=== PATIENT | male | born 1965 | race Caucasian/White ===

== ENCOUNTER 2017-04-25 05:43 | Observation (INO) | payer SELFPAY ==
--- NOTE | 2017-04-25 05:58 | ED ---
Chest Pain HPI - General Source: patient Mode of arrival: ambulatory Limitations: no limitations - History of Present Illness MD Complaint: chest pain Onset/Timin -: week(s) Onset: during rest Pain Location: right chest Pain Radiation: none Severity: severe Quality: sharp Consistency: constant Improves With: nothing Worsens With: inspiration, other (off) Other Symptoms: cough Treatments Prior to Arrival: none <Deepak Montoya - Last Filed: 04/25/17 06:07> <Carlitos Zamora - Last Filed: 04/25/17 07:33> - General Chief Complaint: Chest Pain Stated Complaint: Chest Pain Time Seen by Provider: 04/25/17 05:58 - History of Present Illness Initial Comments: this patient is a 51-year-old man with history of angina who complains of having approximately one week of right sided chest pain. The patient states that the pain is sharp, constant, now severe. The pain gets worse if he coughs or takes a deep breath. He states that it is a little bit better if he lies on his side with a heating pad. he has had an associated cough with some thick yellow sputum and he states occasional flecks of blood. Patient denies diaphoresis, nausea or vomiting, palpitations, lightheadedness or syncope. ( Deepak Montoya) - Related Data Home Medications Medication Instructions Recorded Confirmed Metoprolol Tartrate [Lopressor] 25 mg PO BID 04/25/17 04/25/17 Allergies Allergy/AdvReac Type Severity Reaction Status Date / Time morphine Allergy Unknown Verified 04/25/17 07:27 Penicillins Allergy Unknown Verified 04/25/17 07:27 Review of Systems ROS Other: All systems not noted in ROS Statement are negative. Constitutional: Denies: fever, chills Respiratory: Reports: as per HPI, cough, hemoptysis. Denies: dyspnea, wheezes Cardiovascular: Reports: as per HPI, chest pain. Denies: palpitations, orthopnea Gastrointestinal: Denies: abdominal pain, vomiting, diarrhea Genitourinary: Denies: dysuria, hematuria Musculoskeletal: Denies: back pain Skin: Denies: rash Neurological: Denies: headache <Deepak Montoya - Last Filed: 04/25/17 06:07> ROS Other: All systems not noted in ROS Statement are negative. <Carlitos Zamora - Last Filed: 04/25/17 07:33> ROS Statement: Those systems with pertinent positive or pertinent negative responses have been documented in the HPI. EKG Findings - EKG Results: EKG: interpreted by PRUDENCIO ADAMS, sinus rhythm (rate is proximal a 75 bpm), normal axis, normal QRS, normal ST/T - OR, Pacemaker, Normal: Normal tracing: normal tracing <JeovanyDeepak schultz Last Filed: 04/25/17 06:07> Past Medical History Past Medical History: Chest Pain / Angina, Hypertension History of Any Multi-Drug Resistant Organisms: None Reported Additional Past Surgical History / Comment(s): tumor removal Past Psychological History: No Psychological Hx Reported Smoking Status: Current every day smoker Past Alcohol Use History: Daily Past Drug Use History: Marijuana <JeovanyantoineDeepak Moran Last Filed: 04/25/17 06:07> General Exam Limitations: no limitations General appearance: alert, in no apparent distress Head exam: Present: atraumatic, normocephalic Eye exam: Present: normal appearance. Absent: scleral icterus, conjunctival injection Neck exam: Present: normal inspection Respiratory exam: Present: wheezes. Absent: respiratory distress, rales, rhonchi, stridor Cardiovascular Exam: Present: regular rate, normal rhythm, normal heart sounds. Absent: systolic murmur, diastolic murmur, rubs, gallop GI/Abdominal exam: Present: soft. Absent: distended, tenderness, guarding, rebound, rigid, mass Extremities exam: Present: normal inspection, normal capillary refill. Absent: pedal edema, calf tenderness Back exam: Present: normal inspection. Absent: CVA tenderness (R), CVA tenderness (L) Neurological exam: Present: alert Skin exam: Present: warm, dry, intact, normal color. Absent: rash <JanDeepak - Last Filed: 04/25/17 06:07> Vital Signs 04/25/17 04/25/17 05:55 06:34 Temperature 97.6 F Pulse Rate 80 69 Respiratory 20 18 Rate Blood Pressure 145/88 130/82 O2 Sat by Pulse 99 99 Oximetry Disposition <JanDeepak Moran Last Filed: 04/25/17 06:07> Time of Disposition: 07:33 <Carlitos Zamora - Last Filed: 04/25/17 07:33> Clinical Impression: Unstable angina pectoris Disposition: ADMITTED IP TO THIS HOSP
[2017-04-25] MEDS ORDERED: NITROGLYCERIN SL TABS 0.4 MG TAB SUBLINGUAL STA (06:22)
[2017-04-25 06:29] LABS: ALT 26 U/L (21-72); AST 36 U/L (17-59); Alkaline Phosphatase 69 U/L (38-126); Anion Gap 11 mmol/L; Blood Urea Nitrogen 5 mg/dL (9-20); Calcium 9.6 mg/dL (8.4-10.2); Carbon Dioxide 26 mmol/L (22-30); Chloride 109 mmol/L (98-107); Glucose 77 mg/dL (74-99); Magnesium 1.8 mg/dL (1.6-2.3); Non-African American GFR(MDRD) >60 (>60 ml/min/1.73 sqM); Potassium 3.9 mmol/L (3.5-5.1); Sodium 146 mmol/L (137-145); Total Bilirubin 0.3 mg/dL (0.2-1.3); Total Protein 7.5 g/dL (6.3-8.2)
[2017-04-25 06:35] VITALS: RESP 18
[2017-04-25 06:36] LABS: Partial Thromboplastin Time 23.7 sec (22.0-30.0); Prothrombin Time 9.8 sec (9.0-12.0)
[2017-04-25 06:45] LABS: Basophils # (A) 0.1 k/uL (0-0.2); Basophils % (A) 1 %; CH 35.6; CHCM 33.3; Eosinophils # (A) 0.2 k/uL (0-0.7); Eosinophils % (A) 2 %; HCT 44.6 % (39.0-53.0); HDW 1.86; Luc # (Auto) 0.32; Luc % (Auto) 3; Lymphocytes # (A) 2.5 k/uL (1.0-4.8); Lymphocytes % (A) 27 %; MCHC 33.6 g/dL (31.0-37.0); MCV 107.2 fL (80.0-100.0); Macrocytosis Moderate; Monocytes # (A) 0.8 k/uL (0-1.0); Monocytes % (A) 8 %; Neutrophils # (A) 5.6 k/uL (1.3-7.7); Neutrophils % (A) 59 %; RBC 4.16 m/uL (4.30-5.90); WBC 9.5 k/uL (3.8-10.6); WBC (Perox) 8.92
[2017-04-25] MEDS ORDERED: NITROGLYCERIN SL TABS 0.4 MG TAB SUBLINGUAL PRN (06:53)
[2017-04-25] MEDS ORDERED: SODIUM CHLORIDE 0.9% 1,000 ML IV SCH (07:00)
--- NOTE | 2017-04-25 07:26 | XR ---
EXAM: XR Chest, 2 Views. CLINICAL HISTORY: Reason: Chest Pain TECHNIQUE: Frontal and lateral views of the chest. COMPARISON: No relevant prior studies available. FINDINGS: Lungs: Lungs are normally inflated. There is no evidence of airspace consolidation. Minimal atelectasis or scarring is seen in both lower lobes. Pleural spaces: Unremarkable. No pneumothorax. Heart: Unremarkable. No cardiomegaly. Mediastinum: Unremarkable. Bones: Unremarkable. No acute fracture. IMPRESSION: No evidence of active cardiopulmonary abnormality.
[2017-04-25 08:22] VITALS: BMI 20.7
[2017-04-25] MEDS ORDERED: NICOTINE 14MG/24HR PATCH TRANSDERM SCH (09:00)
[2017-04-25] MEDS ORDERED: METOPROLOL TARTRATE 25 MG TAB PO SCH ×2 (09:00)
[2017-04-25 10:16] LABS: Cholesterol 182 mg/dL (<200); HDL Cholesterol 68 mg/dL (40-60)
[2017-04-25 10:25] LABS: Creatine Kinase 158 U/L (55-170)
[2017-04-25 10:36] LABS: Creatine Kinase MB 1.5 ng/mL (0.0-2.4); Troponin I <0.012 ng/mL (0.000-0.034)
[2017-04-25] MEDS ORDERED: DOBUTamine DRIP for NUC MED 500 MG in DEXTROSE/WATER 1 250ML.BAG IV ONE (10:58)
[2017-04-25 12:20] VITALS: BP 134/89; PULSE 76; TEMP 98.1
--- NOTE | 2017-04-25 13:14 | ECHOS ---
Referral Reason:chest pain MEASUREMENTS -------- HEIGHT: 175.3 cm WEIGHT: 66.2 kg BP: 131/80 FINDINGS -------- The patient received intravenous dobutamine beginning at 10 mcg/kg/min, increasing to 20 mcg/kg/min and 30 mcg/kg/min in 3 minute stages plus 0 mg atropine. Max Heart Rate: 147 % of Max Predicted Heart Rate: 86% Rest Heart Rate: 65 Rest BP: 131/80 Max BP: 146/68 Mets Achieved: N/A The test was stopped because the target heart rate was achieved. Sinus rhythm. In response to stress, the ECG showed no ST-T wave changes . In response to stress, the ECG showed no ST-T wave changes . There were normal blood pressure and heart rate responses to stress. LV size, wall thickness and systolic function are normal, with an EF of 60%. At recovery dobutamine stress there was appropriate augmentation of systolic function of all segments with decrease in cavity size. CONCLUSIONS -------- 1. The patient received intravenous dobutamine beginning at 10 mcg/kg/min, increasing to 20 mcg/kg/min and 30 mcg/kg/min in 3 minute stages plus 0 mg atropine. 2. No 2D echocardiographic evidence of inducible ischemia to achieved workload. PARTY DEMONSTRATOR: SHEA Pitt
--- NOTE | 2017-04-25 13:25 | P.CRDCN ---
History of Present Illness Consult date: 04/25/17 History of present illness: This 51-year-old male past medical history significant for hypertension, chronic tobacco abuse and regular alcohol intake. He states he smokes 2-3 packs per day and drinks a case of beer per week.. 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 He presents to the hospital with complaints of right-sided reproducible pleuritic chest pain radiates around to his back for the previous week. He can not specify any event that occurred to cause this pain he only states he was sitting down at rest when it occurred and it intensifies with exertion. It does not get better with rest. It also worsens with cough. He went and associated shortness of breath and dizziness. Denies palpitations, nausea or vomiting. The pain does not radiate to his arms or neck but he does feel discomfort in bilateral shoulders. EKG reveals sinus mechanism with no acute ST or T-wave abnormalities. Chest xray no evidence of acute cardiopulmonary process. Cardiac enzymes negative x2, all other labs reviewed. Blood pressure 124/81 with heart rate 64. Current cardiac medications include lopressor 25 mg BID. Review of Systems CONSTITUTIONAL: Denies fever. Denies chills. EYES: Denies blurred vision. Denies vision changes. Denies eye pain. EARS, NOSE, MOUTH & THROAT: Denies headache. Denies sore throat. Denies ear pain. CARDIOVASCULAR: Complains of pleuritic chest pain with shortness of breath. Denies orthopnea. Denies PND. Denies palpitations. RESPIRATORY: Denies cough. GASTROINTESTINAL: Denies abdominal pain. Denies diarrhea. Denies constipation. Denies nausea. Denies vomitng. MUSCULOSKELETAL: Denies myalgias. INTEGUMENTARY: Denies pruitis. Denies rash. NEUROLOGIC: Denies numbness. Denies tingling. Denies weakness. PSYCHIATRIC: Denies anxiety. Denies depression. ENDOCRINE: Denies fatigue. Denies weight change. Denies polydipsia. Denies polyurina. GENITOURINARY: Denies burning, hematuria or urgency with micturation. HEMATOLOGIC: Denies history of anemia. Denies bleeding. Past Medical History Past Medical History: Chest Pain / Angina, Hypertension History of Any Multi-Drug Resistant Organisms: None Reported Additional Past Surgical History / Comment(s): tumor removal Past Psychological History: No Psychological Hx Reported Smoking Status: Current every day smoker Past Alcohol Use History: Daily Past Drug Use History: Marijuana - Past Family History Father Family Medical History: Congestive Heart Failure (CHF) Mother Family Medical History: CVA/TIA Medications and Allergies Home Medications Medication Instructions Recorded Confirmed Type Albuterol Inhaler [Ventolin Hfa 1 - 2 puff INHALATION Q6HR PRN #1 04/25/17 Rx Inhaler] inhaler Doxycycline Monohydrate [Monodox] 100 mg PO Q12HR #10 cap 04/25/17 Rx Metoprolol Tartrate [Lopressor] 25 mg PO BID 04/25/17 04/25/17 History Allergies Allergy/AdvReac Type Severity Reaction Status Date / Time morphine Allergy Unknown Verified 04/25/17 07:27 Penicillins Allergy Unknown Verified 04/25/17 07:27 Physical Exam Vitals: Vital Signs Temp Pulse Resp BP Pulse Ox 04/25/17 07:44 97.0 F L 76 18 114/61 100 04/25/17 07:35 97.0 F L 76 18 114/61 100 04/25/17 06:34 69 18 130/82 99 04/25/17 05:55 97.6 F 80 20 145/88 99 Intake and Output 04/24/17 04/25/17 04/25/17 22:59 06:59 14:59 Other: Weight 63.503 kg GENERAL: This is a 51-year-old male in no apparent distress at the time of my examination. HEENT: Head is atraumatic, normocephalic. Pupils are equal, round. Sclerae anicteric. Conjunctivae are clear. Mucous membranes of the mouth are moist. Neck is supple. There is no jugular venous distention. No carotid bruit is heard. LUNGS: Clear to auscultation no wheezes, rales or rhonchi. No chest wall tenderness is noted on palpation or with deep breathing. HEART: Regular rate and rhythm without murmurs, rubs or gallops. S1 and S2 heard. ABDOMEN: Soft, nontender. Bowel sounds are heard. No organomegaly noted. EXTREMITIES: 2+ peripheral pulses with no evidence of peripheral edema and no calf tenderness noted. NEUROLOGIC: Patient is awake, alert and oriented x3. Results 04/25/17 05:54 04/25/17 05:54 Cardiac Enzymes 04/25/17 04/25/17 Range/Units 05:54 05:54 AST 36 (17-59) U/L Troponin I <0.012 (0.000-0.034) ng/mL Coagulation 04/25/17 Range/Units 05:54 PT 9.8 (9.0-12.0) sec APTT 23.7 (22.0-30.0) sec CBC 04/25/17 Range/Units 05:54 WBC 9.5 (3.8-10.6) k/uL RBC 4.16 L (4.30-5.90) m/uL Hgb 15.0 (13.0-17.5) gm/dL Hct 44.6 (39.0-53.0) % Plt Count 287 (150-450) k/uL Comprehensive Metabolic Panel 04/25/17 Range/Units 05:54 Sodium 146 H (137-145) mmol/L Potassium 3.9 (3.5-5.1) mmol/L Chloride 109 H (98-107) mmol/L Carbon Dioxide 26 (22-30) mmol/L BUN 5 L (9-20) mg/dL Creatinine 0.58 L (0.66-1.25) mg/dL Glucose 77 (74-99) mg/dL Calcium 9.6 (8.4-10.2) mg/dL AST 36 (17-59) U/L ALT 26 (21-72) U/L Alkaline Phosphatase 69 (38-126) U/L Total Protein 7.5 (6.3-8.2) g/dL Albumin 4.5 (3.5-5.0) g/dL Current Medications Generic Name Dose Route Start Last Admin Trade Name Freq PRN Reason Stop Dose Admin Aspirin 325 mg 04/26/17 09:00 Aspirin PO DAILY [facility] Sodium Chloride 1,000 mls @ 100 mls/hr 04/25/17 07:00 Saline 0.9% IV .Q10H [facility] Metoprolol Tartrate 25 mg 04/25/17 09:00 Lopressor PO BID EDEL Nitroglycerin 0.4 mg 04/25/17 06:53 Nitrostat SUBLINGUAL Q5M PRN Chest Pain Intake and Output 04/24/17 04/25/17 04/25/17 22:59 06:59 14:59 Other: Weight 63.503 kg 04/25/17 05:54 04/25/17 05:54 Assessment and Plan Assessment: ASSESSMENT 1. Pleuritic chest pain 2. Essential hypertension 3. Chronic excessive tobacco abuse 4. Regular alcohol intake PLAN Obtain 2-D echocardiogram and Doppler study to assess cardiac structure and function. Proceed with dobutamine stress echocardiogram. Smoking cessation discussed, patient resistant. Lifestyle modification recommended. If his stress test is normal is stable for discharge home. He should follow-up with his primary care physician within the week. Nurse Practitioner note has been reviewed, I agree with a documented findings and plan of care. Patient was seen and examined.
--- NOTE | 2017-04-25 16:33 | P.HPIM ---
History of Present Illness This 51-year-old male past medical history significant for hypertension, chronic tobacco abuse and regular alcohol intake. He states he smokes 2-3 packs per day and drinks a case of beer per week.. 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 He presents to the hospital with complaints of right-sided reproducible pleuritic chest pain radiates around to his back for the previous week. He can not specify any event that occurred to cause this pain he only states he was sitting down at rest when it occurred and it intensifies with exertion. It does not get better with rest. It also worsens with cough. He went and associated shortness of breath and dizziness. Denies palpitations, nausea or vomiting. The pain does not radiate to his arms or neck but he does feel discomfort in bilateral shoulders. Patient's chest pain is secondary to bronchitis and cough patient does have reproducible chest pain in the lower chest area tenderness is secondary to chronic coughing for about a week extensive counseling regarding smoking was provided patient may have COPD which was never diagnosed is definitely wheezing with rhonchus breath sounds patient does have bronchitis will be discharged on doxycycline and albuterol Review of Systems REVIEW OF SYSTEMS: CONSTITUTIONAL: No fever, no malaise, no fatigue. HEENT: No recent visual problems or hearing problems. Denied any sore throat. CARDIOVASCULAR: No orthopnea, PND, no palpitations, no syncope. PULMONARY: Patient does have bloody streaks with the sputum and yellowish sputum production GASTROINTESTINAL: No diarrhea, no nausea, no vomiting, no abdominal pain. Normoactive bowel sounds. NEUROLOGICAL: No headaches, no weakness, no numbness. HEMATOLOGICAL: Denies any bleeding or petechiae. GENITOURINARY: Denies any burning micturition, frequency, or urgency. MUSCULOSKELETAL/RHEUMATOLOGICAL: Denies any joint pain, swelling, or any muscle pain. ENDOCRINE: Denies any polyuria or polydipsia. The rest of the 14-point review of systems is negative. Past Medical History Past Medical History: Chest Pain / Angina, Hypertension History of Any Multi-Drug Resistant Organisms: None Reported Additional Past Surgical History / Comment(s): tumor removal Past Anesthesia/Blood Transfusion Reactions: No Reported Reaction Past Psychological History: No Psychological Hx Reported Smoking Status: Current every day smoker Past Alcohol Use History: Daily Past Drug Use History: Marijuana - Past Family History Father Family Medical History: Congestive Heart Failure (CHF) Mother Family Medical History: CVA/TIA Medications and Allergies Home Medications Medication Instructions Recorded Confirmed Type Albuterol Inhaler [Ventolin Hfa 1 - 2 puff INHALATION Q6HR PRN #1 04/25/17 Rx Inhaler] inhaler Doxycycline Monohydrate [Monodox] 100 mg PO Q12HR #10 cap 04/25/17 Rx Metoprolol Tartrate [Lopressor] 25 mg PO BID 04/25/17 04/25/17 History Allergies Allergy/AdvReac Type Severity Reaction Status Date / Time morphine Allergy Unknown Verified 04/25/17 07:27 Penicillins Allergy Unknown Verified 04/25/17 07:27 Physical Exam Vitals: Vital Signs Temp Pulse Pulse Resp BP BP Pulse Ox 04/25/17 12:00 98.1 F 76 18 134/89 96 04/25/17 08:00 97.6 F 64 18 124/81 98 04/25/17 07:44 97.0 F L 76 18 114/61 100 04/25/17 07:35 97.0 F L 76 18 114/61 100 04/25/17 06:34 69 18 130/82 99 04/25/17 05:55 97.6 F 80 20 145/88 99 Intake and Output 04/25/17 04/25/17 04/25/17 06:59 14:59 22:59 Intake Total 240 Balance 240 Intake: Oral 240 Other: Voiding Method Toilet Weight 63.503 kg 66.3 kg Patient Weight 04/26/17 06:59 Weight 66.3 kg Results CBC & Chem 7: 04/25/17 05:54 04/25/17 05:54 Labs: Abnormal Lab Results - Last 24 Hours (Table) 04/25/17 04/25/17 04/25/17 Range/Units 05:54 05:54 09:45 RBC 4.16 L (4.30-5.90) m/uL MCV 107.2 H (80.0-100.0) fL MCH 36.0 H (25.0-35.0) pg Sodium 146 H (137-145) mmol/L Chloride 109 H (98-107) mmol/L BUN 5 L (9-20) mg/dL Creatinine 0.58 L (0.66-1.25) mg/dL HDL Cholesterol 68 H (40-60) mg/dL Thrombosis Risk Factor Assmnt - Choose All That Apply Any of the Below Risk Factors Present?: Yes Each Factor Represents 1 point: Age 41-60 years Other Risk Factors: No Other congenital or acquired thrombophilia - If yes, enter type in comment: No Thrombosis Risk Factor Assessment Total Risk Factor Score: 1 Thrombosis Risk Factor Assessment Level: Low Risk Assessment and Plan Plan: 1 chest pain: Rule out acute coronary syndromes patient underwent stress test which was negative patient's chest pain is musculoskeletal secondary to coughing and muscle soreness secondary to that. #2 possibility of COPD with mild acute exacerbation patient was discharged on albuterol smoking cessation counseling was provided patient will be given prescription for back second. #3 bacterial tracheobronchitis leading to mild hemoptysis. #4 tobacco abuse: Extensive counseling regarding this was provided
--- NOTE | 2017-04-25 16:33 | P.DS ---
Providers Date of admission: 04/25/17 06:53 Attending physician: Za Torres Consults: 04/25/17 06:53 Consult Physician Routine Consulting Provider: Ivonne Díaz Consult Reason/Comments: chest pain Do you want consulting provider notified?: Yes Primary care physician: Stated None Hospital Course: Please refer to my HPI Plan - Discharge Summary Discharge Rx Participant: Yes New Discharge Prescriptions: New Doxycycline Monohydrate [Monodox] 100 mg PO Q12HR #10 cap Albuterol Inhaler [Ventolin Hfa Inhaler] 1 - 2 puff INHALATION Q6HR PRN #1 inhaler PRN Reason: Shortness Of Breath Or Wheezing No Action Metoprolol Tartrate [Lopressor] 25 mg PO BID Discharge Medication List Albuterol Inhaler [Ventolin Hfa Inhaler] 1 - 2 puff INHALATION Q6HR PRN #1 inhaler 04/25/17 [Rx] Doxycycline Monohydrate [Monodox] 100 mg PO Q12HR #10 cap 04/25/17 [Rx] Metoprolol Tartrate [Lopressor] 25 mg PO BID 04/25/17 [History] Follow up Appointment(s)/Referral(s): Shahbaz Rawls MD [STAFF PHYSICIAN] - 1 Week None,Stated [Primary Care Provider] - 1-2 days Discharge Disposition: HOME SELF-CARE
[2017-04-26] MEDS ORDERED: ASPIRIN 325 MG TAB PO SCH (09:00)
--- NOTE | 2017-05-29 11:11 | ECHOF ---
Referral Reason:CHEST PAIN MEASUREMENTS -------- HEIGHT: 175.3 cm WEIGHT: 63.5 kg BP: IVSd: 1.2 cm (0.6 - 1.1) LVIDd: 4.1 cm (3.9 - 5.3) LVPWd: 1.1 cm (0.6 - 1.1) IVSs: 1.9 cm LVIDs: 2.3 cm LVPWs: 1.8 cm LAESV Index (A-L): 29.95 ml/m Ao Diam: 2.9 cm (2.0 - 3.7) AV Cusp: 2.1 cm (1.5 - 2.6) LA Diam: 2.6 cm (2.7 - 3.8) EPSS: 0.4 cm MV E Noel: 0.83 m/s MV DecT: 247 ms MV A Noel: 0.76 m/s MV E/A Ratio: 1.09 RAP: 5.00 mmHg RVSP: 21.12 mmHg MV EF SLOPE: 82.33 mm/s (70 - 150) MV EXCURSION: 1.67 cm (> 18.000) FINDINGS -------- Sinus rhythm. This was a technically good study. The left ventricular size is normal. There is borderline concentric left ventricular hypertrophy. Overall left ventricular systolic function is normal with, an EF between 55 - 60 %. The right ventricle is normal in size and function. Normal LA size by volume 22+/-6 ml/m2. The right atrium is normal in size. The aortic valve is trileaflet, and appears structurally normal. No aortic stenosis or regurgitation. The mitral valve is normal. Mild mitral regurgitation is present. Mild tricuspid regurgitation present. There is no evidence of pulmonary hypertension. The right v entricular systolic pressure, as measured by Doppler, is 21.12mmHg. There is no pulmonic regurgitation present. The aortic root, ascending aorta and aortic arch are normal. Normal inferior vena cava with normal inspiratory collapse consistent with estimated right atrial pre ssure of 5 mmHg. There is no pericardial effusion. CONCLUSIONS -------- 1. Sinus rhythm. 2. This was a technically good study. 3. There is borderline concentric left ventricular hypertrophy. 4. Overall left ventricular systolic function is normal with, an EF between 55 - 60 %. 5. Normal LA size by volume 22+/-6 ml/m2. 6. The aortic valve is trileaflet, and appears structurally normal. No aortic stenosis or regurgitati on. 7. Mild mitral regurgitation is present. 8. Mild tricuspid regurgitation present. 9. There is no evidence of pulmonary hypertension. 10. There is no pulmonic regurgitation present. 11. The aortic root, ascending aorta and aortic arch are normal. 12. Normal inferior vena cava with normal inspiratory collapse consistent with estimated right atrial pressure of 5 mmHg. 13. There is no pericardial effusion. REGIONAL MEDICAL DIRECTOR: Margaret Lopez RDCS
== END 2017-04-25 14:55 | disposition home or self-care (01) ==
LOC: EC 05:43 → 3OBS 06:53
PROVIDERS: ADMIT Hospitalist; ATTEND Hospitalist
DX: J40 Bronchitis, not specified as acute or chronic (principal); I10 Essential (primary) hypertension; F17.200 Nicotine dependence, unspecified, uncomplicated; R42 Dizziness and giddiness; Z79.899 Other long term (current) drug therapy; Z88.5 Allergy status to narcotic agent; Z88.0 Allergy status to penicillin; Z82.49 Family history of ischemic heart disease and other diseases of the circulatory system
CPT/HCPCS: 99285; 36415; 93005; 93017; 93306; 93350; 85379; 80061; 80053; 82550; 82553; 83735; 84484; 85025; 85610; 85730; 71020; G0378; S4990

== ENCOUNTER 2018-07-10 13:20 | Inpatient (IN) | payer OTHER ==
--- NOTE | 2018-07-10 14:02 | ED ---
General Adult HPI - General Chief complaint: Psychiatric Symptoms Stated complaint: Petition Time Seen by Provider: 07/10/18 13:25 Source: patient, police, RN notes reviewed Mode of arrival: ambulatory Limitations: no limitations - History of Present Illness Initial comments: This is a 52-year-old male who presents emergency Department complaining of wanting to kill himself. Patient states he had cross bow was ready to shoot himself in the neck. Patient states Sunday he was laid off of his job and today his left him. Patient states he been for 2 years. Patient states he drinks daily. Patient states he drank quite a bit this morning once his started packing up her things. Patient states it is one of the things him and his argue about is his heavy drinking. Patient denies taking any pills or illegal drugs today. Patient states he made no attempts at killing himself today but was seriously considering. Patient's blood pressure was elevated and I told him that we would do a little workup on him because of the elevated blood pressure and bring his blood pressure down. Patient absolutely refused to have any blood work done and have any medications given and in fact he did not want any blood drawn at all. Patient states he hopes whatever medical conditions he has killed him. - Related Data Home Medications Medication Instructions Recorded Confirmed Metoprolol Tartrate [Lopressor] 25 mg PO BID 04/25/17 07/10/18 Allergies Allergy/AdvReac Type Severity Reaction Status Date / Time morphine Allergy Unknown Verified 07/10/18 13:56 Penicillins Allergy Unknown Verified 07/10/18 13:56 Review of Systems ROS Statement: Those systems with pertinent positive or pertinent negative responses have been documented in the HPI. ROS Other: All systems not noted in ROS Statement are negative. Past Medical History Past Medical History: Coronary Artery Disease (CAD), Chest Pain / Angina, Hypertension History of Any Multi-Drug Resistant Organisms: None Reported Additional Past Surgical History / Comment(s): tumor removal, CAROTID SURGERY Past Anesthesia/Blood Transfusion Reactions: No Reported Reaction Past Psychological History: No Psychological Hx Reported Smoking Status: Current every day smoker Past Alcohol Use History: Daily, Heavy Past Drug Use History: Marijuana - Past Family History Father Family Medical History: Congestive Heart Failure (CHF) Mother Family Medical History: CVA/TIA General Exam - General Exam Comments Initial Comments: GENERAL: Patient is well-developed and well-nourished. Patient is nontoxic and well- hydrated and is in no acute distress. Patient seems intoxicated and he does admit to being intoxicated. ENT: Neck is soft and supple. No significant lymphadenopathy is noted. Oropharynx is clear. Moist mucous membranes. Neck has full range of motion without eliciting any pain. EYES: The sclera were anicteric and conjunctiva were pink and moist. Extraocular movements were intact and pupils were equal round and reactive to light. Eyelids were unremarkable. PULMONARY: Unlabored respirations. Good breath sounds bilaterally. No audible rales rhonchi or wheezing was noted. CARDIOVASCULAR: There is a regular rate and rhythm without any murmurs gallops or rubs. ABDOMEN: Soft and nontender with normal bowel sounds. No palpable organomegaly was noted. There is no palpable pulsatile mass. SKIN: Skin is clear with no lesions or rashes and otherwise unremarkable. NEUROLOGIC: Patient is alert and oriented x3. Cranial nerves II through XII are grossly intact. Motor and sensory are also intact. Normal speech, volume and content. Symmetrical smile. MUSCULOSKELETAL: Normal extremities with adequate strength and full range of motion. No lower extremity swelling or edema. No calf tenderness. LYMPHATICS: No significant lymphadenopathy is noted PSYCHIATRIC: She states she suicidal and he wants no medical intervention because he rather be Limitations: no limitations Course Vital Signs 07/10/18 07/10/18 07/10/18 13:23 14:15 15:08 Temperature 98 F Pulse Rate 109 H 85 Respiratory 18 16 Rate Blood Pressure 214/111 210/108 201/125 O2 Sat by Pulse 99 97 Oximetry 07/10/18 15:20 Temperature Pulse Rate 75 Respiratory 16 Rate Blood Pressure 151/90 O2 Sat by Pulse 97 Oximetry Medical Decision Making - Medical Decision Making After recheck with medical legal they indicated to us that we could make the patient get medical treatment while he was intoxicated. I went back into the room to reevaluate the patient I told him that I thought medical treatment was indicated for his high blood pressure and he eventually agreed to allow us to do it until he was sober. EKG shows a normal sinus rhythm at 65 bpm VA interval 160 QRS is 88 QT interval 436 QTC is 453 per patient's EKG shows no ST segment elevation or depression. Patient refuses to stay still for a chest x-ray. I spoke with some physicians accepted the admission. - Lab Data Result diagrams: 07/10/18 14:21 07/10/18 14:21 Lab Results 07/10/18 07/10/18 07/10/18 Range/Units 14:21 14:21 14:21 WBC 6.8 (3.8-10.6) k/uL RBC 4.75 (4.30-5.90) m/uL Hgb 17.2 (13.0-17.5) gm/dL Hct 51.6 (39.0-53.0) % MCV 108.5 H (80.0-100.0) fL MCH 36.2 H (25.0-35.0) pg MCHC 33.4 (31.0-37.0) g/dL RDW 13.4 (11.5-15.5) % Plt Count 174 (150-450) k/uL Neutrophils % 66 % Lymphocytes % 24 % Monocytes % 6 % Eosinophils % 1 % Basophils % 1 % Neutrophils # 4.5 (1.3-7.7) k/uL Lymphocytes # 1.6 (1.0-4.8) k/uL Monocytes # 0.4 (0-1.0) k/uL Eosinophils # 0.1 (0-0.7) k/uL Basophils # 0.1 (0-0.2) k/uL Macrocytosis Moderate PT (9.0-12.0) sec INR (<1.2) APTT (22.0-30.0) sec Sodium 139 (137-145) mmol/L Potassium 4.6 (3.5-5.1) mmol/L Chloride 99 (98-107) mmol/L Carbon Dioxide 26 (22-30) mmol/L Anion Gap 14 mmol/L BUN 5 L (9-20) mg/dL Creatinine 0.64 L (0.66-1.25) mg/dL Est GFR (CKD-EPI)AfAm >90 (>60 ml/min/1.73 sqM) Est GFR (CKD-EPI)NonAf >90 (>60 ml/min/1.73 sqM) Glucose 88 (74-99) mg/dL Calcium 9.4 (8.4-10.2) mg/dL Magnesium 1.8 (1.6-2.3) mg/dL Total Bilirubin 0.5 (0.2-1.3) mg/dL AST 56 (17-59) U/L ALT 45 (21-72) U/L Alkaline Phosphatase 91 (38-126) U/L Total Creatine Kinase 66 (55-170) U/L CK-MB (CK-2) 0.5 (0.0-2.4) ng/mL CK-MB (CK-2) Rel Index 0.8 Troponin I <0.012 (0.000-0.034) ng/mL Total Protein 8.1 (6.3-8.2) g/dL Albumin 5.0 (3.5-5.0) g/dL Urine Opiates Screen (NotDetected) Ur Oxycodone Screen (NotDetected) Urine Methadone Screen (NotDetected) Ur Propoxyphene Screen (NotDetected) Ur Barbiturates Screen (NotDetected) U Tricyclic Antidepress (NotDetected) Ur Phencyclidine Scrn (NotDetected) Ur Amphetamines Screen (NotDetected) U Methamphetamines Scrn (NotDetected) U Benzodiazepines Scrn (NotDetected) Urine Cocaine Screen (NotDetected) U Marijuana (THC) Screen (NotDetected) Serum Alcohol 330 H* mg/dL 07/10/18 07/10/18 Range/Units 14:21 15:25 WBC (3.8-10.6) k/uL RBC (4.30-5.90) m/uL Hgb (13.0-17.5) gm/dL Hct (39.0-53.0) % MCV (80.0-100.0) fL MCH (25.0-35.0) pg MCHC (31.0-37.0) g/dL RDW (11.5-15.5) % Plt Count (150-450) k/uL Neutrophils % % Lymphocytes % % Monocytes % % Eosinophils % % Basophils % % Neutrophils # (1.3-7.7) k/uL Lymphocytes # (1.0-4.8) k/uL Monocytes # (0-1.0) k/uL Eosinophils # (0-0.7) k/uL Basophils # (0-0.2) k/uL Macrocytosis PT 9.7 (9.0-12.0) sec INR 0.9 (<1.2) APTT 23.9 (22.0-30.0) sec Sodium (137-145) mmol/L Potassium (3.5-5.1) mmol/L Chloride (98-107) mmol/L Carbon Dioxide (22-30) mmol/L Anion Gap mmol/L BUN (9-20) mg/dL Creatinine (0.66-1.25) mg/dL Est GFR (CKD-EPI)AfAm (>60 ml/min/1.73 sqM) Est GFR (CKD-EPI)NonAf (>60 ml/min/1.73 sqM) Glucose (74-99) mg/dL Calcium (8.4-10.2) mg/dL Magnesium (1.6-2.3) mg/dL Total Bilirubin (0.2-1.3) mg/dL AST (17-59) U/L ALT (21-72) U/L Alkaline Phosphatase (38-126) U/L Total Creatine Kinase (55-170) U/L CK-MB (CK-2) (0.0-2.4) ng/mL CK-MB (CK-2) Rel Index Troponin I (0.000-0.034) ng/mL Total Protein (6.3-8.2) g/dL Albumin (3.5-5.0) g/dL Urine Opiates Screen Not Detected (NotDetected) Ur Oxycodone Screen Not Detected (NotDetected) Urine Methadone Screen Not Detected (NotDetected) Ur Propoxyphene Screen Not Detected (NotDetected) Ur Barbiturates Screen Not Detected (NotDetected) U Tricyclic Antidepress Not Detected (NotDetected) Ur Phencyclidine Scrn Not Detected (NotDetected) Ur Amphetamines Screen Not Detected (NotDetected) U Methamphetamines Scrn Not Detected (NotDetected) U Benzodiazepines Scrn Detected H (NotDetected) Urine Cocaine Screen Not Detected (NotDetected) U Marijuana (THC) Screen Detected H (NotDetected) Serum Alcohol mg/dL Disposition Clinical Impression: Hypertensive urgency, Alcohol intoxication, Suicidal ideation Disposition: ADMITTED IP TO THIS [facility] Referrals: None,Stated [Primary Care Provider] - 1-2 days Time of Disposition: 17:12
[2018-07-10] MEDS ORDERED: NICOTINE 21MG/24HR PATCH TRANSDERM STA (14:09)
[2018-07-10] MEDS ORDERED: LABETALOL SYRINGE 5 MG/ML IVP STA (14:14)
[2018-07-10 14:32] LABS: Basophils # (A) 0.1 k/uL (0-0.2); Basophils % (A) 1 %; Eosinophils # (A) 0.1 k/uL (0-0.7); Eosinophils % (A) 1 %; HCT 51.6 % (39.0-53.0); HGB 17.2 gm/dL (13.0-17.5); Lymphocytes # (A) 1.6 k/uL (1.0-4.8); Lymphocytes % (A) 24 %; MCH 36.2 pg (25.0-35.0); MCHC 33.4 g/dL (31.0-37.0); MCV 108.5 fL (80.0-100.0); Macrocytosis Moderate; Mean Platelet Volume 7.4; Monocytes # (A) 0.4 k/uL (0-1.0); Monocytes % (A) 6 %; Neutrophils # (A) 4.5 k/uL (1.3-7.7); Neutrophils % (A) 66 %; Platelet Count 174 k/uL (150-450); RBC 4.75 m/uL (4.30-5.90); RDW 13.4 % (11.5-15.5); WBC 6.8 k/uL (3.8-10.6)
[2018-07-10 14:43] LABS: INR 0.9 (<1.2); Partial Thromboplastin Time 23.9 sec (22.0-30.0); Prothrombin Time 9.7 sec (9.0-12.0)
[2018-07-10 14:47] LABS: ALT 45 U/L (21-72); AST 56 U/L (17-59); Alkaline Phosphatase 91 U/L (38-126); Anion Gap 14 mmol/L; Blood Urea Nitrogen 5 mg/dL (9-20); Calcium 9.4 mg/dL (8.4-10.2); Carbon Dioxide 26 mmol/L (22-30); Chloride 99 mmol/L (98-107); Glucose 88 mg/dL (74-99); Magnesium 1.8 mg/dL (1.6-2.3); Potassium 4.6 mmol/L (3.5-5.1); Sodium 139 mmol/L (137-145); Total Bilirubin 0.5 mg/dL (0.2-1.3); Total Protein 8.1 g/dL (6.3-8.2)
[2018-07-10 14:55] LABS: Creatine Kinase 66 U/L (55-170)
[2018-07-10 14:59] LABS: Alcohol 330 mg/dL
[2018-07-10 15:08] LABS: Creatine Kinase MB 0.5 ng/mL (0.0-2.4); Troponin I <0.012 ng/mL (0.000-0.034)
[2018-07-10 16:04] LABS: Cocaine Screen,Urine Not Detected (NotDetected); Phencyclidine Screen,Urine Not Detected (NotDetected); Urn Cannabinoid Scrn Detected (NotDetected)
[2018-07-10 16:05] LABS: Amphetamine Screen,Urine Not Detected (NotDetected); Barbiturate Screen,Urine Not Detected (NotDetected); Benzodiazepines Screen,Urine Detected (NotDetected); Methadone Screen, Urine Not Detected (NotDetected); Opiate Screen,Urine Not Detected (NotDetected); Oxycodone Screen, Urine Not Detected (NotDetected); Tricyclic Antidepressant,Urine Not Detected (NotDetected)
[2018-07-10] MEDS ORDERED: SODIUM CHLORIDE 0.9% 1,000 ML IV ONE (17:13)
[2018-07-10] MEDS ORDERED: LORazepam 2 MG/ML INJ IV PRN ×2 (17:17)
[2018-07-10] MEDS ORDERED: THIAMINE 100 MG/ML 2 ML VIAL IM STA (17:17)
--- NOTE | 2018-07-10 17:41 | P.HPIM ---
History of Present Illness H&P Date: 07/10/18 Chief Complaint: suicidal ideation 52-year-old male with PMH of hypertension presents to the ED for suicidal ideation. Patient reports that his had left and this morning, unsure of how to deal with life. He does not admit to any specific plans but does endorse suicidal ideations. Patient denies headaches, lower extremity edema, nausea, vomiting, fever, shortness of breath, palpitations, changes in urination or bowel habits. Patient does report chest pain that has been ongoing for greater than 10 years. Pain is constant and centrally located. Pain is not related to exertion or meals. Patient reports that the pain is aggravated with deep inspirations. Patient reports smoking 3 packs per day for the past 40 years. in the ED, CBC showed a macrocytosis with an MCV of 108.5. Correlation panel was negative. CMP showed a creatinine of 0.64 and BUN of 5. Initial troponin is less than 0.012, with EKG showing normal sinus rhythm.urine drug screen is positive for benzodiazepines and marijuana. Serum alcohol level at 2:15 PM is 330. Patient is admitted for alcohol intoxication and suicidal ideation, psychiatry is onboard. Review of Systems All systems: negative Past Medical History Past Medical History: Coronary Artery Disease (CAD), Chest Pain / Angina, Hypertension History of Any Multi-Drug Resistant Organisms: None Reported Additional Past Surgical History / Comment(s): tumor removal, CAROTID SURGERY Past Anesthesia/Blood Transfusion Reactions: No Reported Reaction Past Psychological History: No Psychological Hx Reported Smoking Status: Current every day smoker Past Alcohol Use History: Daily, Heavy Past Drug Use History: Marijuana - Past Family History Father Family Medical History: Congestive Heart Failure (CHF) Mother Family Medical History: CVA/TIA Medications and Allergies Home Medications Medication Instructions Recorded Confirmed Type Metoprolol Tartrate [Lopressor] 25 mg PO BID 04/25/17 07/10/18 History Allergies Allergy/AdvReac Type Severity Reaction Status Date / Time morphine Allergy Unknown Verified 07/10/18 13:56 Penicillins Allergy Unknown Verified 07/10/18 13:56 Physical Exam Vitals: Vital Signs Temp Pulse Resp BP Pulse Ox 07/10/18 15:20 75 16 151/90 97 07/10/18 15:08 201/125 07/10/18 14:15 85 16 210/108 97 07/10/18 13:23 98 F 109 H 18 214/111 99 Intake and Output 07/10/18 07/10/18 07/10/18 06:59 14:59 22:59 Other: Weight 65.771 kg General: [non toxic], [no distress], [appears at stated age] Derm: [warm], [dry] Head: [atraumatic], [normocephalic], [symmetric], [surgical scar left carotid area] Eyes: [EOMI], [no lid lag], [anicteric sclera] Mouth: [no lip lesion], [mucus membranes moist] Cardiovascular: [S1S2 reg], [no murmur], [positive DP pulse bilateral] Lungs: [CTA bilateral], [no rhonchi, no rales] , [no accessory muscle use] Abdominal: [soft], [ nontender to palpation], [no guarding], [no appreciable organomegaly] Ext: [no gross muscle atrophy], [no edema], [no contractures] Neuro: [ CN II-XI grossly intact], [no focal neuro deficits] Psych: [Alert], [oriented], [appropriate affect] Results CBC & Chem 7: 07/10/18 14:21 07/10/18 14:21 Labs: Abnormal Lab Results - Last 24 Hours (Table) 07/10/18 07/10/18 07/10/18 Range/Units 14:21 14:21 15:25 MCV 108.5 H (80.0-100.0) fL MCH 36.2 H (25.0-35.0) pg BUN 5 L (9-20) mg/dL Creatinine 0.64 L (0.66-1.25) mg/dL U Benzodiazepines Scrn Detected H (NotDetected) U Marijuana (THC) Screen Detected H (NotDetected) Serum Alcohol 330 H* mg/dL Thrombosis Risk Factor Assmnt - Choose All That Apply Any of the Below Risk Factors Present?: Yes Each Factor Represents 1 point: Abnormal pulmonary function (COPD), Age 41-60 years Other Risk Factors: No Other congenital or acquired thrombophilia - If yes, enter type in comment: No Thrombosis Risk Factor Assessment Total Risk Factor Score: 2 Thrombosis Risk Factor Assessment Level: Low Risk Assessment and Plan Assessment: Assessment and Plan 1. Alcohol intoxication 2. Suicidal ideations 3. Chest pain 4. Hypertension 5. Smoker 6. DVT/GI Prophylaxis 1. EtOH level 330 on admission. CIWA protocol. Ativan IV PRN for CIWA > 8. Continue Thiamine 100 mg PO BID. Telemetry monitoring. Keep K > 4 and Mg > 2. Fall and seizure precautions. 2. Suicidal precautions with 1:1 sitter pending Psychiatry evaluation. Patient is intoxicated and incapable of making decision on his own. 3. Appears to be pleuritic in nature, > 10 years ongoing, no concerns for acute coronary syndrome. Troponin < 0.012 with EKG showing normal sinus rhythm. Trend Trop/EKG to r/o ACS. FU CXR 4. BP 151/90. States was on Metoprolol but has not taken it compliantly. Monitor vitals, adjust medications as necessary. 5. 3 PPD smoker. Nicotine patch 21 mg SUBCUT daily. 6. SCD boots only. Patient being treated for alcohol intoxication and suicidal ideation. 1-[address] Psychiatric evaluation pending.
--- NOTE | 2018-07-10 19:17 | XR ---
EXAMINATION TYPE: XR chest 2V DATE OF EXAM: 07/10/2018 COMPARISON: 04/25/2017 HISTORY: Altered mental status. Chest pain TECHNIQUE: Frontal and lateral views of the chest are obtained. FINDINGS: Heart and mediastinum are normal. Lungs are clear. Diaphragm is normal. Bony thorax is int act. IMPRESSION: Normal chest. No change.
[2018-07-10 20:04] VITALS: BMI 22.0
[2018-07-10] MEDS: LORazepam 2 MG/ML INJ IV PRN (20:16)
[2018-07-11] MEDS: LORazepam 2 MG/ML INJ IV PRN ×2 (07:51→11:35)
[2018-07-11 08:25] VITALS: PULSE 86; RESP 18
[2018-07-11] MEDS ORDERED: METOPROLOL TARTRATE 25 MG TAB PO SCH (09:00)
[2018-07-11] MEDS ORDERED: NICOTINE 21MG/24HR PATCH TRANSDERM STA (11:10)
[2018-07-11] MEDS ORDERED: THIAMINE 100 MG TAB PO SCH (12:00)
--- NOTE | 2018-07-11 13:20 | P.DS ---
Providers Date of admission: 07/10/18 17:13 Expected date of discharge: 07/11/18 Attending physician: Vic Maldonado MD Consults: 07/10/18 19:56 Consult Physician Urgent Consulting Provider: Ranjeet Whitfield Consult Reason/Comments: suicidal Do you want consulting provider notified?: Yes Primary care physician: Stated None - Discharge Diagnosis(es) (1) Chest pain Current Visit: Yes Status: Acute (2) Alcohol intoxication Current Visit: Yes Status: Acute (3) Hypertensive urgency Current Visit: Yes Status: Acute (4) Suicidal ideation Current Visit: Yes Status: Acute Hospital Course: 52-year-old male with PMH of hypertension presents to the ED for suicidal ideation. Patient reports that his had left and this morning, unsure of how to deal with life. He does not admit to any specific plans but does endorse suicidal ideations. Patient denies headaches, lower extremity edema, nausea, vomiting, fever, shortness of breath, palpitations, changes in urination or bowel habits. Patient does report chest pain that has been ongoing for greater than 10 years. Pain is constant and centrally located. Pain is not related to exertion or meals. Patient reports that the pain is aggravated with deep inspirations. Patient reports smoking 3 packs per day for the past 40 years. in the ED, CBC showed a macrocytosis with an MCV of 108.5. Correlation panel was negative. CMP showed a creatinine of 0.64 and BUN of 5. Initial troponin is less than 0.012, with EKG showing normal sinus rhythm. Urine drug screen is positive for benzodiazepines and marijuana. Serum alcohol level at 2:15 PM is 330. Patient is admitted for alcohol intoxication and suicidal ideation, psychiatry is onboard. He was cleared for discharge from a Psychiatric standpoint. Patient was seen and examined prior to discharge. No acute events overnight. He has no complaints, requesting to go home. General: [non toxic], [no distress], [appears at stated age] Derm: [warm], [dry] Head: [atraumatic], [normocephalic], [symmetric], [surgical scar left carotid area] Eyes: [EOMI], [no lid lag], [anicteric sclera] Mouth: [no lip lesion], [mucus membranes moist] Cardiovascular: [S1S2 reg], [no murmur], [positive DP pulse bilateral] Lungs: [CTA bilateral], [no rhonchi, no rales] , [no accessory muscle use] Abdominal: [soft], [ nontender to palpation], [no guarding], [no appreciable organomegaly] Ext: [no gross muscle atrophy], [no edema], [no contractures] Psych: [Alert], [oriented], [appropriate affect] Assessment and Plan 1. Alcohol intoxication 2. Suicidal ideations 3. Chest pain 4. Hypertension 5. Smoker 6. DVT/GI Prophylaxis 1. EtOH level 330 on admission. CIWA protocol. Ativan IV PRN for CIWA > 8. Continue Thiamine 100 mg PO BID. Telemetry monitoring. Keep K > 4 and Mg > 2. Fall and seizure precautions. 2. Patient cleared from Psyc. 3. Appears to be pleuritic in nature, > 10 years ongoing, no concerns for acute coronary syndrome. Troponin < 0.012 with EKG showing normal sinus rhythm. CXR clear. 4. BP 162/106. States was on Metoprolol but has not taken it compliantly. Started on Metoprolol and DC with Amlodipine as well. Monitor vitals, adjust medications as necessary. 5. 3 PPD smoker. Nicotine patch 21 mg SUBCUT daily. 6. SCD boots only. Patient being treated for alcohol intoxication and suicidal ideation. Cleared for DC by Psychiatry. Pertinent Studies: CXR Patient Condition at Discharge: Stable Plan - Discharge Summary New Discharge Prescriptions: New amLODIPine [Norvasc] 5 mg PO DAILY #30 tab Continue Metoprolol Tartrate [Lopressor] 25 mg PO BID #60 tab Discharge Medication List Metoprolol Tartrate [Lopressor] 25 mg PO BID #60 tab 07/11/18 [Rx] amLODIPine [Norvasc] 5 mg PO DAILY #30 tab 07/11/18 [Rx] Follow up Appointment(s)/Referral(s): None,Stated [Primary Care Provider] - 1-2 days Activity/Diet/Wound Care/Special Instructions: [facility] - [address] [place] [address]. Discharge Disposition: HOME SELF-CARE
[2018-07-11 13:37] VITALS: BP 167/107; TEMP 98.3
--- NOTE | 2018-07-11 13:41 | P.CN ---
Psychiatric Consult - . Consult date: 07/11/18 Consult:: 07/11/18 09:26 Suicidal Assessment and Plan Assessment: 52-year-old male with PMH of hypertension presents to the ED for suicidal ideation. Patient reports that his had left and this morning, unsure of how to deal with life. He does not admit to any specific plans but does endorse suicidal ideations. Patient denies headaches, lower extremity edema, nausea, vomiting, fever, shortness of breath, palpitations, changes in urination or bowel habits. Patient does report chest pain that has been ongoing for greater than 10 years. Pain is constant and centrally located. Pain is not related to exertion or meals. Patient reports that the pain is aggravated with deep inspirations. Patient reports smoking 3 packs per day for the past 40 years. in the ED, CBC showed a macrocytosis with an MCV of 108.5. Correlation panel was negative. CMP showed a creatinine of 0.64 and BUN of 5. Initial troponin is less than 0.012, with EKG showing normal sinus rhythm.urine drug screen is positive for benzodiazepines and marijuana. Serum alcohol level at 2:15 PM is 330. Patient is admitted for alcohol intoxication and suicidal ideation, psychiatry is onboard. Past Medical History Past Medical History: Coronary Artery Disease (CAD), Chest Pain / Angina, Hypertension History of Any Multi-Drug Resistant Organisms: None Reported Additional Past Surgical History / Comment(s): tumor removal, CAROTID SURGERY Past Anesthesia/Blood Transfusion Reactions: No Reported Reaction Past Psychological History: No Psychological Hx Reported Smoking Status: Current every day smoker Past Alcohol Use History: Daily, Heavy Past Drug Use History: Marijuana - Past Family History Father Family Medical History: Congestive Heart Failure (CHF) Mother Family Medical History: CVA/TIA Medications and Allergies Home Medications Medication Instructions Recorded Confirmed Type Metoprolol Tartrate [Lopressor] 25 mg PO BID 04/25/17 07/10/18 History Allergies Allergy/AdvReac Type Severity Reaction Status Date / Time morphine Allergy Unknown Verified 07/10/18 13:56 Penicillins Allergy Unknown Verified 07/10/18 13:56 Mental Status Examination - The patient presents alert, pleasant, and cooperative. There calmly seated without any agitated behavior. [He] reports that [his] mood is good. Affect is congruent and euthymic. [He] deny having any suicidal or homicidal ideation intent or plan. [He] denies any auditory or visual hallucinations. There is no evidence of any delusional thought content. [His] thought process is linear and goal-directed. [His] speech is fluent and nonpressured. [His] memory and concentration is grossly intact for the purposes of this session. Psychiatric impression: Alcohol-induced adjustment mood disorder and suicidal gesture on 07/10/2018 but is not there now Psychiatric recommendations: He does not need a sitter when medically stable may go home he is not a candidate for inpatient psychiatry at this time. Thank you for the consult Ranjeet Whitfield D.O. PhD Time with Patient: Less than 30
[2018-07-12] MEDS ORDERED: NICOTINE 21MG/24HR PATCH TRANSDERM SCH (09:00)
== END 2018-07-11 15:03 | disposition home or self-care (01) | DRG 897 ==
LOC: EC 13:20 → 3SCARD 17:13
PROVIDERS: ADMIT Family Medicine; ATTEND Family Medicine
DX: F10.14 Alcohol abuse with alcohol-induced mood disorder (principal); R45.851 Suicidal ideations; F10.129 Alcohol abuse with intoxication, unspecified; I16.0 Hypertensive urgency; F17.210 Nicotine dependence, cigarettes, uncomplicated; I25.10 Atherosclerotic heart disease of native coronary artery without angina pectoris; I10 Essential (primary) hypertension; Y90.8 Blood alcohol level of 240 mg/100 ml or more; D75.89 Other specified diseases of blood and blood-forming organs; Z79.899 Other long term (current) drug therapy; Z88.5 Allergy status to narcotic agent; Z88.0 Allergy status to penicillin
CPT/HCPCS: 36415; 71046; 80053; 80306; 80320; 82550; 82553; 83735; 84484; 85025; 85610; 85730; 93005; 96372; 96374; 99285

== ENCOUNTER 2023-02-18 22:22 | Emergency (ER) | payer OTHER ==
[2023-02-18 22:32] VITALS: TEMP 98.6
--- NOTE | 2023-02-18 22:51 | ED ---
SOB HPI - General Chief Complaint: Shortness of Breath Stated Complaint: Difficulty breathing, swelling of the feet Time Seen by Provider: 02/18/23 22:37 Source: patient, RN notes reviewed, old records reviewed Mode of arrival: ambulatory Limitations: no limitations - History of Present Illness Initial Comments: This is a 57-year-old male to the emergency department for evaluation of severe weakness and he believes significant shortness of breath. Lightheaded dizzy and persistent weakness at times. Shortness of breath his been developing getting p rogressively worse. Patient has a good appetite no nausea vomiting or diarrhea. Does have underlying COPD. But no other complaints MD Complaint: shortness of breath, cough -: days(s) Severity: moderate Severity scale (1-10): 4 Consistency: constant Improves With: nothing Known History Of: COPD Context: recent URI, anxiety, recent illness Associated Symptoms: denies other symptoms - Related Data Home Medications Medication Instructions Recorded Confirmed No Known Home Medications 02/19/23 02/19/23 Allergies Allergy/AdvReac Type Severity Reaction Status Date / Time bee venom protein (honey bee) Allergy Swelling Verified 02/19/23 16:07 morphine Allergy Unknown Verified 02/19/23 16:07 Penicillins Allergy Rash/Hives Verified 02/19/23 16:07 Review of Systems ROS Statement: Those systems with pertinent positive or pertinent negative responses have been documented in the HPI. ROS Other: All systems not noted in ROS Statement are negative. Past Medical History Past Medical History: Coronary Artery Disease (CAD), Chest Pain / Angina, Hypertension History of Any Multi-Drug Resistant Organisms: None Reported Additional Past Surgical History / Comment(s): tumor removal, CAROTID SURGERY Past Anesthesia/Blood Transfusion Reactions: No Reported Reaction Past Psychological History: No Psychological Hx Reported Smoking Status: Current every day smoker, Heavy tobacco smoker Past Alcohol Use History: Daily, Heavy Past Drug Use History: Marijuana - Past Family History Father Family Medical History: Congestive Heart Failure (CHF) Mother Family Medical History: CVA/TIA General Exam Limitations: no limitations General appearance: alert, in no apparent distress Head exam: Present: atraumatic, normocephalic, normal inspection Eye exam: Present: normal appearance, PERRL, EOMI. Absent: scleral icterus, conjunctival injection, periorbital swelling ENT exam: Present: normal exam, mucous membranes moist Neck exam: Present: normal inspection. Absent: tenderness, meningismus, lymphadenopathy Respiratory exam: Present: normal lung sounds bilaterally. Absent: respiratory distress, wheezes, rales, rhonchi, stridor Cardiovascular Exam: Present: regular rate, normal rhythm, normal heart sounds. Absent: systolic murmur, diastolic murmur, rubs, gallop, clicks GI/Abdominal exam: Present: soft, normal bowel sounds. Absent: distended, tenderness, guarding, rebound, rigid Extremities exam: Present: normal inspection, full ROM, normal capillary refill. Absent: tenderness, pedal edema, joint swelling, calf tenderness Back exam: Present: normal inspection Neurological exam: Present: alert, oriented X3, CN II-XII intact Psychiatric exam: Present: normal affect, normal mood Skin exam: Present: warm, dry, intact, normal color. Absent: rash Course Vital Signs 02/18/23 02/18/23 02/18/23 22:30 22:50 22:58 Temperature 98.6 F Pulse Rate 104 H 101 H Respiratory 20 18 18 Rate Blood Pressure 124/77 131/84 O2 Sat by Pulse 99 99 Oximetry 02/18/23 02/18/23 02/18/23 23:34 23:44 23:53 Temperature Pulse Rate 84 91 98 Respiratory 16 Rate Blood Pressure 131/84 O2 Sat by Pulse 94 L Oximetry 02/18/23 02/19/23 02/19/23 23:54 00:00 00:30 Temperature Pulse Rate 93 94 103 H Respiratory Rate Blood Pressure 131/84 131/84 121/70 O2 Sat by Pulse 95 Oximetry - Reevaluation(s) Reevaluation #1: 02/18/23 23:27 Medical record is reviewed Reevaluation #2: Patient before reevaluation has decided he is going to leave the hospital Reevaluation #3: Patient is encouraged to stay leave AGAINST MEDICAL ADVICE Reevaluation #4: 02/18/23 23:13 Was pt. sent in by a medical professional or institution (, PA, INSTALLMENT ACCOUNT CHECKER, urgent care, hospital, or assisted...) When possible be specific @ -no Did you speak to anyone other than the patient for history (EMS, parent, family, police, friend...)? What history was obtained from this source @ -no Did you review nursing and triage notes (agree or disagree)? Why? @ -agree Are old charts reviewed (outside hosp., previous admission, EMS record, old EKG, old radiological studies, urgent care reports/EKG's, assisted records)? Report findings @ -yes Differential Diagnosis (chest pain, altered mental status, abdominal pain women, abdominal pain men, vaginal bleeding, weakness, fever, dyspnea, syncope, headache, dizziness, GI bleed, back pain, seizure, CVA, palpatations, mental health, musculoskeletal)? @ -prior EKG interpreted by me (3pts min.). @ -yes X-rays interpreted by me (1pt min.). @ -yes CT interpreted by me (1pt min.). @ -no U/S interpreted by me (1pt. min.). @ -no What testing was considered but not performed or refused? (CT, X-rays, U/S, labs)? Why? @ -none What meds were considered but not given or refused? Why? @ -none Did you discuss the management of the patient with other professionals (professionals i.e. , PA, INSTALLMENT ACCOUNT CHECKER, lab, RT, psych nurse, social media editor, weed controller, teacher, medical information officer, case mgr)? Give summary @ -no Was smoking cessation discussed for >3mins.? @ -no Was critical care preformed (if so, how long)? @ -no Were there social determinants of health that impacted care today? How? (Homelessness, low income, unemployed, alcoholism, drug addiction, transportation, low edu. Level, literacy, decrease access to med. care, [facility], rehab)? @ -none Was there de-escalation of care discussed even if they declined (Discuss DNR or withdrawal of care, Hospice)? DNR status @ -no What co-morbidities impacted this encounter? (DM, HTN, Smoking, COPD, CAD, Cancer, CVA, ARF, Chemo, Hep., AIDS, mental health diagnosis, sleep apnea, morbid obesity)? @ -none Was patient admitted / discharged? Hospital course, mention meds given and route, prescriptions, significant lab abnormalities, going to OR and other p ertinent info. @ - 57 male released AGAINST MEDICAL ADVICE prior to repeat evaluation and treatment patient is left prior to evaluation of Findings, treatment AMA Undiagnosed new problem with uncertain prognosis? @ -no Drug Therapy requiring intensive monitoring for toxicity (Heparin, Nitro, Insul in, Cardizem)? @ -no Were any procedures done? @ -no Diagnosis/symptom? @ -Shortness of breath with chest pain undetermined Acute, or Chronic, or Acute on Chronic? @ -Acute Uncomplicated (without systemic symptoms) or Complicated (systemic symptoms)? @ -Complicated Side effects of treatment? @ -no Exacerbation, Progression, or Severe Exacerbation? @ -exacerbation Poses a threat to life or bodily function? How? (Chest pain, [place], [place], pneumonia, PE, COPD, DKA, ARF, appy, cholecystitis, CVA, Diverticulitis, Homicidal, Suicidal, threat to staff... and all critical care pts) @ -yes findings are undetermined here in the ER Medical Decision Making - Medical Decision Making 57 male who presented today for evaluation of chest pain shortness breath currently hospital AGAINST MEDICAL ADVICE - Lab Data Result diagrams: 02/18/23 23:26 02/18/23 23:26 Lab Results 02/18/23 02/18/23 02/18/23 Range/Units 23:26 23:26 23:26 WBC 8.6 (3.8-10.6) k/uL RBC 3.95 L (4.30-5.90) m/uL Hgb 13.1 (13.0-17.5) gm/dL Hct 40.4 (39.0-53.0) % MCV 102.2 H (80.0-100.0) fL MCH 33.1 (25.0-35.0) pg MCHC 32.3 (31.0-37.0) g/dL RDW 14.2 (11.5-15.5) % Plt Count 244 (150-450) k/uL MPV 8.2 Neutrophils % 59 % Lymphocytes % 29 % Monocytes % 8 % Eosinophils % 2 % Basophils % 1 % Neutrophils # 5.1 (1.3-7.7) k/uL Lymphocytes # 2.5 (1.0-4.8) k/uL Monocytes # 0.7 (0-1.0) k/uL Eosinophils # 0.2 (0-0.7) k/uL Basophils # 0.1 (0-0.2) k/uL Macrocytosis Slight PT 9.8 (9.0-12.0) sec INR 0.9 (<1.2) APTT 23.4 (22.0-30.0) sec D-Dimer 0.80 H (<0.60) mg/L FEU Sodium 144 (137-145) mmol/L Potassium 3.0 L (3.5-5.1) mmol/L Chloride 106 (98-107) mmol/L Carbon Dioxide 27 (22-30) mmol/L Anion Gap 11 mmol/L BUN 16 (9-20) mg/dL Creatinine 0.57 L (0.66-1.25) mg/dL Est GFR (CKD-EPI)AfAm >90 (>60 ml/min/1.73 sqM) Est GFR (CKD-EPI)NonAf >90 (>60 ml/min/1.73 sqM) Glucose 71 L (74-99) mg/dL Plasma Lactic Acid Khanh (0.7-2.0) mmol/L Calcium 9.0 (8.4-10.2) mg/dL Phosphorus 2.8 (2.5-4.5) mg/dL Magnesium 1.7 (1.6-2.3) mg/dL Total Bilirubin 0.3 (0.2-1.3) mg/dL AST 28 (17-59) U/L ALT 15 (4-49) U/L Alkaline Phosphatase 70 (38-126) U/L Troponin I (0.000-0.034) ng/mL NT-Pro-B Natriuret Pep 42 pg/mL Total Protein 6.2 L (6.3-8.2) g/dL Albumin 3.6 (3.5-5.0) g/dL Lipase 311 H (23-300) U/L Serum Alcohol 334 H* mg/dL 02/18/23 02/19/23 Range/Units 23:26 00:17 WBC (3.8-10.6) k/uL RBC (4.30-5.90) m/uL Hgb (13.0-17.5) gm/dL Hct (39.0-53.0) % MCV (80.0-100.0) fL MCH (25.0-35.0) pg MCHC (31.0-37.0) g/dL RDW (11.5-15.5) % Plt Count (150-450) k/uL MPV Neutrophils % % Lymphocytes % % Monocytes % % Eosinophils % % Basophils % % Neutrophils # (1.3-7.7) k/uL Lymphocytes # (1.0-4.8) k/uL Monocytes # (0-1.0) k/uL Eosinophils # (0-0.7) k/uL Basophils # (0-0.2) k/uL Macrocytosis PT (9.0-12.0) sec INR (<1.2) APTT (22.0-30.0) sec D-Dimer (<0.60) mg/L FEU Sodium (137-145) mmol/L Potassium (3.5-5.1) mmol/L Chloride (98-107) mmol/L Carbon Dioxide (22-30) mmol/L Anion Gap mmol/L BUN (9-20) mg/dL Creatinine (0.66-1.25) mg/dL Est GFR (CKD-EPI)AfAm (>60 ml/min/1.73 sqM) Est GFR (CKD-EPI)NonAf (>60 ml/min/1.73 sqM) Glucose (74-99) mg/dL Plasma Lactic Acid Khanh 1.9 (0.7-2.0) mmol/L Calcium (8.4-10.2) mg/dL Phosphorus (2.5-4.5) mg/dL Magnesium (1.6-2.3) mg/dL Total Bilirubin (0.2-1.3) mg/dL AST (17-59) U/L ALT (4-49) U/L Alkaline Phosphatase (38-126) U/L Troponin I <0.012 (0.000-0.034) ng/mL NT-Pro-B Natriuret Pep pg/mL Total Protein (6.3-8.2) g/dL Albumin (3.5-5.0) g/dL Lipase (23-300) U/L Serum Alcohol mg/dL - EKG Data -: EKG Interpreted by Me (EKG is sinus 94 W[place] 162 QRS 92 QTC 424) - Radiology Data Radiology results: report reviewed (Chest x-rays negative for acute disease), image reviewed Disposition Clinical Impression: Chest pain, Acute exacerbation of chronic obstructive pulmonary disease Disposition: LEFT AGAINST MEDICAL ADVICE Condition: Undetermined Is patient prescribed a controlled substance at d/c from ED?: No Referrals: None,Stated [Primary Care Provider] - 1-2 days
[2023-02-18] MEDS ORDERED: SODIUM CHLORIDE 0.9% 1,000 ML IV STA ×2 (23:01)
[2023-02-18] MEDS ORDERED: SODIUM CHLORIDE 0.9% 500 ML 500 ML IV STA (23:01)
[2023-02-18] MEDS ORDERED: IPRATROPIUM-ALBUTEROL 3 ML NEB INHALATION STA (23:01)
[2023-02-18 23:54] VITALS: RESP 16
[2023-02-19 00:20] LABS: Basophils # (A) 0.1 k/uL (0-0.2); Basophils % (A) 1 %; Eosinophils # (A) 0.2 k/uL (0-0.7); Eosinophils % (A) 2 %; HCT 40.4 % (39.0-53.0); HGB 13.1 gm/dL (13.0-17.5); Lymphocytes # (A) 2.5 k/uL (1.0-4.8); Lymphocytes % (A) 29 %; MCH 33.1 pg (25.0-35.0); MCHC 32.3 g/dL (31.0-37.0); MCV 102.2 fL (80.0-100.0); Macrocytosis Slight; Mean Platelet Volume 8.2; Monocytes # (A) 0.7 k/uL (0-1.0); Monocytes % (A) 8 %; Neutrophils # (A) 5.1 k/uL (1.3-7.7); Neutrophils % (A) 59 %; Platelet Count 244 k/uL (150-450); RBC 3.95 m/uL (4.30-5.90); RDW 14.2 % (11.5-15.5); WBC 8.6 k/uL (3.8-10.6)
[2023-02-19 00:26] LABS: ALT 15 U/L (4-49); AST 28 U/L (17-59); African American GFR (CKD) >90 (>60 ml/min/1.73 sqM); Albumin 3.6 g/dL (3.5-5.0); Alkaline Phosphatase 70 U/L (38-126); Anion Gap 11 mmol/L; Blood Urea Nitrogen 16 mg/dL (9-20); Carbon Dioxide 27 mmol/L (22-30); Chloride 106 mmol/L (98-107); Glucose 71 mg/dL (74-99); Lipase 311 U/L (23-300); Magnesium 1.7 mg/dL (1.6-2.3); Non-African American GFR(CKD) >90 (>60 ml/min/1.73 sqM); Phosphorus 2.8 mg/dL (2.5-4.5); Sodium 144 mmol/L (137-145); Total Bilirubin 0.3 mg/dL (0.2-1.3); Total Protein 6.2 g/dL (6.3-8.2)
[2023-02-19 00:33] LABS: INR 0.9 (<1.2); Partial Thromboplastin Time 23.4 sec (22.0-30.0); Prothrombin Time 9.8 sec (9.0-12.0)
[2023-02-19 00:34] LABS: NT-Pro-B-Type Natriuretic Pept 42 pg/mL
[2023-02-19 00:37] LABS: Alcohol 334 mg/dL
--- NOTE | 2023-02-19 00:58 | XR ---
EXAMINATION TYPE: XR chest 2V DATE OF EXAM: 02/19/2023 COMPARISON: 07/10/2018 HISTORY: 57-year-old male difficulty in breathing, lower extremity swelling TECHNIQUE: PA and lateral views FINDINGS: Heart normal size. Aorta and pulmonary vasculature within normal limits. Mild interstitial prominence is unchanged. No amy consolidation or pleural effusion. IMPRESSION: Chronic changes without acute process seen.
[2023-02-19 01:03] VITALS: BP 121/70; PULSE 103
== END 2023-02-19 01:20 | disposition left against medical advice (07) ==
LOC: EC 22:22
DX: J44.1 Chronic obstructive pulmonary disease with (acute) exacerbation (principal); I10 Essential (primary) hypertension; I25.10 Atherosclerotic heart disease of native coronary artery without angina pectoris; F17.200 Nicotine dependence, unspecified, uncomplicated; F12.90 Cannabis use, unspecified, uncomplicated; Z88.0 Allergy status to penicillin; Z88.5 Allergy status to narcotic agent; Z91.030 Bee allergy status
CPT/HCPCS: 36415; 71046; 80053; 80320; 83605; 83690; 83735; 83880; 84100; 84484; 85025; 85379; 85610; 85730; 93005; 94640; 96360; 96361; 99285

== ENCOUNTER 2023-02-19 12:18 | Observation (INO) | payer OTHER ==
[2023-02-19] MEDS ORDERED: ALBUTEROL HFA INHALER INHALATION STA (12:48)
--- NOTE | 2023-02-19 12:51 | ED ---
General Adult HPI - General Chief complaint: Shortness of Breath Stated complaint: FERNANDA, came back Time Seen by Provider: 02/19/23 12:27 Source: patient, RN notes reviewed, old records reviewed Mode of arrival: ambulatory Limitations: no limitations - History of Present Illness Initial comments: Patient is a pleasant 57-year-old male presenting to the emergency department complaining of shortness of breath. Patient states he was here yesterday and has continued symptoms. Patient does have cough without sputum production. No chest pain. No fever. No leg pain or swelling. Patient is a smoker. No history of similar symptoms previously. Onset of symptoms was just a day or 2 ago. Patient states he has been vaccinated for COVID-19 infection - Related Data Previous Rx's Medication Instructions Recorded Metoprolol Tartrate [Lopressor] 25 mg PO BID #60 tab 07/11/18 amLODIPine [Norvasc] 5 mg PO DAILY #30 tab 07/11/18 Allergies Allergy/AdvReac Type Severity Reaction Status Date / Time bee venom protein (honey bee) Allergy Swelling Verified 02/19/23 12:19 morphine Allergy Unknown Verified 02/19/23 12:19 Penicillins Allergy Unknown Verified 02/19/23 12:19 Review of Systems ROS Statement: Those systems with pertinent positive or pertinent negative responses have been documented in the HPI. ROS Other: All systems not noted in ROS Statement are negative. Constitutional: Denies: fever Eyes: Denies: eye pain ENT: Denies: ear pain Respiratory: Reports: as per HPI, cough Cardiovascular: Denies: chest pain Endocrine: Reports: fatigue Gastrointestinal: Denies: abdominal pain Genitourinary: Denies: dysuria Past Medical History Past Medical History: Coronary Artery Disease (CAD), Chest Pain / Angina, Hypertension History of Any Multi-Drug Resistant Organisms: None Reported Additional Past Surgical History / Comment(s): tumor removal, CAROTID SURGERY Past Anesthesia/Blood Transfusion Reactions: No Reported Reaction Past Psychological History: No Psychological Hx Reported Smoking Status: Current every day smoker, Heavy tobacco smoker Past Alcohol Use History: Daily, Heavy Past Drug Use History: Marijuana - Past Family History Father Family Medical History: Congestive Heart Failure (CHF) Mother Family Medical History: CVA/TIA General Exam Limitations: no limitations General appearance: alert, in no apparent distress Head exam: Present: normocephalic Eye exam: Present: normal appearance Neck exam: Present: normal inspection Respiratory exam: Present: rales (Left greater than right base) Cardiovascular Exam: Present: regular rate, normal rhythm GI/Abdominal exam: Present: soft. Absent: tenderness Extremities exam: Present: normal inspection. Absent: pedal edema, calf tenderness Neurological exam: Present: alert Psychiatric exam: Present: normal affect, normal mood Skin exam: Present: normal color Course Vital Signs 02/19/23 02/19/23 02/19/23 12:19 14:30 14:38 Temperature 98 F Pulse Rate 77 70 74 Respiratory 18 Rate Blood Pressure 114/78 O2 Sat by Pulse 97 Oximetry EKG Findings - EKG Results: EKG: interpreted by ERMD, sinus rhythm, normal axis, normal QRS, normal ST/T Medical Decision Making - Medical Decision Making Was pt. sent in by a medical professional or institution (, PA, BLOOMING MILL SUPERVISOR, urgent care, hospital, or shelter...) When possible be specific @ -No Did you speak to anyone other than the patient for history (EMS, parent, family, police, friend...)? What history was obtained from this source @ -No Did you review nursing and triage notes (agree or disagree)? Why? @ -I reviewed and agree with nursing and triage notes Were old charts reviewed (outside hosp., previous admission, EMS record, old EKG, old radiological studies, urgent care reports/EKG's, shelter records)? Report findings @ -Previous labs and alcohol level reviewed as well as the chart Differential Diagnosis (chest pain, altered mental status, abdominal pain women, abdominal pain men, vaginal bleeding, weakness, fever, dyspnea, syncope, headache, dizziness, GI bleed, back pain, seizure, CVA, palpatations, mental health, musculoskeletal)? @ -Differential Dyspnea: Coronary syndrome, arrhythmia, tamponade, asthma, COPD, pulmonary embolism, pneumonia, pneumothorax, pulmonary effusion, anaphylaxis, diabetic ketoacidosis, flailed chest, pulmonary contusion, diaphragmatic rupture, anemia, neuromuscular, this is not meant to be an all-inclusive list. EKG interpreted by me (3pts min.). @ -As above X-rays interpreted by me (1pt min.). @ -None done CT interpreted by me (1pt min.). @ -Reported as no pulmonary embolism U/S interpreted by me (1pt. min.). @ -None done What testing was considered but not performed or refused? (CT, X-rays, U/S, labs)? Why? @ -None What meds were considered but not given or refused? Why? @ -None Did you discuss the management of the patient with other professionals (professionals i.e. , PA, BLOOMING MILL SUPERVISOR, lab, RT, psych nurse, clinical social work aide, insurance customer service specialist, teacher, police officer, case management associate)? Give summary @ -Case was discussed with Dr. Cervantes, who will admit for hospital call. Was smoking cessation discussed for >3mins.? @ -No Was critical care preformed (if so, how long)? @ -No Were there social determinants of health that impacted care today? How? (Homelessness, low income, unemployed, alcoholism, drug addiction, transportation, low edu. Level, literacy, decrease access to med. care, [facility], rehab)? @ -No Was there de-escalation of care discussed even if they declined (Discuss DNR or withdrawal of care, Hospice)? DNR status @ -No What co-morbidities impacted this encounter? (DM, HTN, Smoking, COPD, CAD, Cancer, CVA, ARF, Chemo, Hep., AIDS, mental health diagnosis, sleep apnea, morbid obesity)? @ -None Was patient admitted / discharged? Hospital course, mention meds given and route, prescriptions, significant lab abnormalities, going to OR and other pertinent info. @ -Patient reevaluated and updated. Lung sounds improved however still has decreased air exchange and wheezing. Patient will be admitted. Patient also has alcohol intoxication with reported alcohol level of 387. Admission orders written. Undiagnosed new problem with uncertain prognosis? @ -No Drug Therapy requiring intensive monitoring for toxicity (Heparin, Nitro, Insulin, Cardizem)? @ -No Were any procedures done? @ -No Diagnosis/symptom? @ -COPD, alcohol intoxication Acute, or Chronic, or Acute on Chronic? @ -Acute on chronic, acute Uncomplicated (without systemic symptoms) or Complicated (systemic symptoms)? @ -default Side effects of treatment? @ -No Exacerbation, Progression, or Severe Exacerbation? @ -No Poses a threat to life or bodily function? How? (Chest pain, [place], [place], pneumonia, PE, COPD, DKA, ARF, appy, cholecystitis, CVA, Diverticulitis, Homicidal, Suicidal, threat to staff... and all critical care pts) @ -No - Lab Data Result diagrams: 02/19/23 13:05 02/19/23 13:05 Lab Results 02/19/23 02/19/23 02/19/23 Range/Units 13:05 13:05 13:05 WBC 4.6 (3.8-10.6) k/uL RBC 3.61 L (4.30-5.90) m/uL Hgb 12.1 L (13.0-17.5) gm/dL Hct 37.0 L (39.0-53.0) % MCV 102.6 H (80.0-100.0) fL MCH 33.4 (25.0-35.0) pg MCHC 32.6 (31.0-37.0) g/dL RDW 14.5 (11.5-15.5) % Plt Count 218 (150-450) k/uL MPV 8.4 Neutrophils % 52 % Lymphocytes % 34 % Monocytes % 7 % Eosinophils % 3 % Basophils % 1 % Neutrophils # 2.4 (1.3-7.7) k/uL Lymphocytes # 1.6 (1.0-4.8) k/uL Monocytes # 0.3 (0-1.0) k/uL Eosinophils # 0.1 (0-0.7) k/uL Basophils # 0.0 (0-0.2) k/uL Macrocytosis Slight PT 10.0 (9.0-12.0) sec INR 0.9 (<1.2) APTT 24.3 (22.0-30.0) sec Sodium 144 (137-145) mmol/L Potassium 3.2 L (3.5-5.1) mmol/L Chloride 112 H (98-107) mmol/L Carbon Dioxide 26 (22-30) mmol/L Anion Gap 6 mmol/L BUN 9 (9-20) mg/dL Creatinine 0.46 L (0.66-1.25) mg/dL Est GFR (CKD-EPI)AfAm >90 (>60 ml/min/1.73 sqM) Est GFR (CKD-EPI)NonAf >90 (>60 ml/min/1.73 sqM) Glucose 76 (74-99) mg/dL Plasma Lactic Acid Khanh (0.7-2.0) mmol/L Calcium 7.9 L (8.4-10.2) mg/dL Magnesium 1.7 (1.6-2.3) mg/dL Total Bilirubin 0.3 (0.2-1.3) mg/dL AST 23 (17-59) U/L ALT 14 (4-49) U/L Alkaline Phosphatase 59 (38-126) U/L Troponin I (0.000-0.034) ng/mL NT-Pro-B Natriuret Pep 212 pg/mL Total Protein 5.5 L (6.3-8.2) g/dL Albumin 3.1 L (3.5-5.0) g/dL Serum Alcohol mg/dL Influenza Type A (PCR) (Not Detectd) Influenza Type B (PCR) (Not Detectd) RSV (PCR) (Not Detectd) SARS-CoV-2 (PCR) (Not Detectd) 02/19/23 02/19/23 02/19/23 Range/Units 13:05 13:05 13:05 WBC (3.8-10.6) k/uL RBC (4.30-5.90) m/uL Hgb (13.0-17.5) gm/dL Hct (39.0-53.0) % MCV (80.0-100.0) fL MCH (25.0-35.0) pg MCHC (31.0-37.0) g/dL RDW (11.5-15.5) % Plt Count (150-450) k/uL MPV Neutrophils % % Lymphocytes % % Monocytes % % Eosinophils % % Basophils % % Neutrophils # (1.3-7.7) k/uL Lymphocytes # (1.0-4.8) k/uL Monocytes # (0-1.0) k/uL Eosinophils # (0-0.7) k/uL Basophils # (0-0.2) k/uL Macrocytosis PT (9.0-12.0) sec INR (<1.2) APTT (22.0-30.0) sec Sodium (137-145) mmol/L Potassium (3.5-5.1) mmol/L Chloride (98-107) mmol/L Carbon Dioxide (22-30) mmol/L Anion Gap mmol/L BUN (9-20) mg/dL Creatinine (0.66-1.25) mg/dL Est GFR (CKD-EPI)AfAm (>60 ml/min/1.73 sqM) Est GFR (CKD-EPI)NonAf (>60 ml/min/1.73 sqM) Glucose (74-99) mg/dL Plasma Lactic Acid Khanh 1.9 (0.7-2.0) mmol/L Calcium (8.4-10.2) mg/dL Magnesium (1.6-2.3) mg/dL Total Bilirubin (0.2-1.3) mg/dL AST (17-59) U/L ALT (4-49) U/L Alkaline Phosphatase (38-126) U/L Troponin I <0.012 (0.000-0.034) ng/mL NT-Pro-B Natriuret Pep pg/mL Total Protein (6.3-8.2) g/dL Albumin (3.5-5.0) g/dL Serum Alcohol mg/dL Influenza Type A (PCR) Not Detected (Not Detectd) Influenza Type B (PCR) Not Detected (Not Detectd) RSV (PCR) Not Detected (Not Detectd) SARS-CoV-2 (PCR) Not Detected (Not Detectd) Disposition Clinical Impression: Acute exacerbation of chronic obstructive pulmonary disease, Alcohol intoxicati on Disposition: ADMITTED IP TO THIS HOSP Is patient prescribed a controlled substance at d/c from ED?: No Referrals: None,Stated [Primary Care Provider] - 1-2 days Time of Disposition: 15:16
[2023-02-19 13:24] LABS: Basophils % (A) 1 %; Eosinophils # (A) 0.1 k/uL (0-0.7); Eosinophils % (A) 3 %; HGB 12.1 gm/dL (13.0-17.5); Lymphocytes # (A) 1.6 k/uL (1.0-4.8); Lymphocytes % (A) 34 %; MCH 33.4 pg (25.0-35.0); MCHC 32.6 g/dL (31.0-37.0); MCV 102.6 fL (80.0-100.0); Macrocytosis Slight; Mean Platelet Volume 8.4; Monocytes # (A) 0.3 k/uL (0-1.0); Monocytes % (A) 7 %; Neutrophils # (A) 2.4 k/uL (1.3-7.7); Neutrophils % (A) 52 %; Platelet Count 218 k/uL (150-450); RBC 3.61 m/uL (4.30-5.90); RDW 14.5 % (11.5-15.5); WBC 4.6 k/uL (3.8-10.6)
--- NOTE | 2023-02-19 13:31 | CT ---
EXAMINATION TYPE: CT angio chest DATE OF EXAM: 02/19/2023 COMPARISON: None HISTORY: SOB CT DLP: 212 mGycm CONTRAST: CT chest with contrast and 3D reconstruction with MIP imaging is performed with IV Contrast, patient injected with 100 mL of Isovue 370. Contrast-enhanced CT of the chest was performed through the course of the pulmonary arteries with tenzin g and mediastinal window settings submitted. 3D reconstruction with MIP imaging was also performed. PULMONARY ARTERIES: The pulmonary arteries and their major tributaries are patent. I do not see carol dence for sizable filling defect to suggest pulmonary embolic process. LUNGS: The lungs are clear and free of infiltrate. No evidence for atelectasis. No pulmonary nodule or mass is detected. No pleural effusion. MEDIASTINUM: Thoracic aorta is of normal caliber.The heart is not enlarged. No evidence for mediast inal mass. No mediastinal lymph nodes greater than 1cm. HILAR STRUCTURES: No evidence for mass. No hilar lymph nodes greater than 1 cm. UPPER ABDOMEN: No significant abnormality is seen. IMPRESSION: 1. No evidence for Pulmonary embolism at this time.
[2023-02-19 13:36] LABS: Sodium 144 mmol/L (137-145)
[2023-02-19 13:37] LABS: ALT 14 U/L (4-49); AST 23 U/L (17-59); African American GFR (CKD) >90 (>60 ml/min/1.73 sqM); Albumin 3.1 g/dL (3.5-5.0); Alkaline Phosphatase 59 U/L (38-126); Anion Gap 6 mmol/L; Blood Urea Nitrogen 9 mg/dL (9-20); Calcium 7.9 mg/dL (8.4-10.2); Carbon Dioxide 26 mmol/L (22-30); Chloride 112 mmol/L (98-107); Glucose 76 mg/dL (74-99); Magnesium 1.7 mg/dL (1.6-2.3); Non-African American GFR(CKD) >90 (>60 ml/min/1.73 sqM); Potassium 3.2 mmol/L (3.5-5.1); Total Bilirubin 0.3 mg/dL (0.2-1.3); Total Protein 5.5 g/dL (6.3-8.2)
[2023-02-19 13:42] LABS: INR 0.9 (<1.2); Partial Thromboplastin Time 24.3 sec (22.0-30.0)
[2023-02-19 13:45] LABS: NT-Pro-B-Type Natriuretic Pept 212 pg/mL
[2023-02-19] MEDS ORDERED: IPRATROPIUM-ALBUTEROL 3 ML NEB INHALATION STA (14:06)
[2023-02-19] MEDS ORDERED: NALOXONE 0.4 MG/ML 1 ML VIAL IVP PRN (15:16)
[2023-02-19] MEDS ORDERED: IPRATROPIUM-ALBUTEROL 3 ML NEB INHALATION PRN (15:16)
[2023-02-19] MEDS ORDERED: methylPREDNISolone SOD SUCCI 125 MG/2 ML VIAL IV STA (15:16)
[2023-02-19] MEDS ORDERED: LORazepam 1 MG TAB PO PRN ×2 (15:17)
[2023-02-19] MEDS ORDERED: THIAMINE 100 MG/ML 2 ML VIAL IM STA (15:17)
[2023-02-19] MEDS ORDERED: LORazepam 0.5 MG TAB PO PRN (15:17)
[2023-02-19] MEDS ORDERED: LORazepam 2 MG/ML INJ IV PRN (15:17)
[2023-02-19] MEDS: IPRATROPIUM-ALBUTEROL 3 ML NEB INHALATION SCH ×2 (16:59→20:52)
[2023-02-19] MEDS: methylPREDNISolone SOD SUCCI 125 MG/2 ML VIAL IV SCH (17:24)
[2023-02-19 23:14] LABS: Alcohol 325 mg/dL
[2023-02-20] MEDS: LORazepam 1 MG TAB PO PRN ×2 (00:54→08:58)
[2023-02-20] MEDS: methylPREDNISolone SOD SUCCI 125 MG/2 ML VIAL IV SCH ×3 (00:55→12:24)
[2023-02-20] MEDS: NICOTINE 21MG/24HR PATCH TRANSDERM SCH ×2 (00:55→08:58)
[2023-02-20] MEDS: IPRATROPIUM-ALBUTEROL 3 ML NEB INHALATION SCH ×2 (07:35→11:07)
[2023-02-20 08:28] VITALS: BP 176/99; RESP 16; TEMP 98.3
[2023-02-20] MEDS ORDERED: MULTIVITAMINS, THERA 1 EACH TAB PO SCH (09:00)
[2023-02-20] MEDS ORDERED: THIAMINE 100 MG TAB PO SCH (09:00)
[2023-02-20 11:18] VITALS: PULSE 78
--- NOTE | 2023-02-20 14:23 | P.HPIM ---
History of Present Illness H&P Date: 02/20/23 History of present illness; patient is a 57-year-old gentleman with past medical history significant for alcohol abuse, hypertension presented to the ER because of shortness of breath. Patient was seen yesterday in the ER for similar complaints. Patient has been having worsening shortness of breath for the last few days. Gets short of breath on exertion. Denies any chest pain. Complaining of cough. Complaining of chest tightness. Denies any nausea or vomiting. Denies abdominal pain. Denies any fever or chills at home. Initial lab work done in the ER showed WBC 4.6, hemoglobin 12.1, platelet count 218, sodium 144, potassium 3.0, creatinine 0.46, alcohol level 325 Influenza AMB not detected, RSV not detected, COVID-19 not detected Chest x-ray done in the ER showed chronic changes without acute process CTA chest negative for PE REVIEW OF SYSTEMS: CONSTITUTIONAL: No fever, no malaise, no fatigue. HEENT: No recent visual problems or hearing problems. Denied any sore throat. CARDIOVASCULAR: As mentioned in HPI PULMONARY: As mentioned in HPI GASTROINTESTINAL: No diarrhea, no nausea, no vomiting, no abdominal pain. NEUROLOGICAL: No headaches, no weakness, no numbness. HEMATOLOGICAL: Denies any bleeding or petechiae. GENITOURINARY: Denies any burning micturition, frequency, or urgency. MUSCULOSKELETAL/RHEUMATOLOGICAL: Denies any joint pain, swelling, or any muscle pain. ENDOCRINE: Denies any polyuria or polydipsia. The rest of the 14-point review of systems is negative. PHYSICAL EXAMINATION: GENERAL: The patient is alert and oriented x3, not in any acute distress. Well developed, well nourished. HEENT: Pupils are round and equally reacting to light. EOMI. No scleral icterus. No conjunctival pallor. Normocephalic, atraumatic. No pharyngeal erythema. No thyromegaly. CARDIOVASCULAR: S1 and S2 present. No murmurs, rubs, or gallops. PULMONARY: Chest is clear to auscultation, no wheezing or crackles. ABDOMEN: Soft, nontender, nondistended, normoactive bowel sounds. No palpable organomegaly. MUSCULOSKELETAL: No joint swelling or deformity. EXTREMITIES: No cyanosis, clubbing, or pedal edema. NEUROLOGICAL: Gross neurological examination did not reveal any focal deficits. SKIN: No rashes. Assessment and plan Acute COPD exacerbation Alcohol abuse Hypokalemia Monitor vital signs Monitor CBC Monitor CMP Continue on zoledronic Continue breathing treatments Encouraged and counseled patient regarding alcohol cessation Continue [facility] protocol Social work consulted Labs and medication were reviewed.. Continue same treatment. Continue with symptomatic treatment. Resume home medication. Monitor labs and vitals. DVT and GI prophylaxis. Further recommendations as per clinical course of the patient Dictation was produced using [employer] dictation software. please excuse any grammatical, word or spelling errors. Past Medical History Past Medical History: Coronary Artery Disease (CAD), Chest Pain / Angina, Hypertension History of Any Multi-Drug Resistant Organisms: None Reported Additional Past Surgical History / Comment(s): tumor removal, CAROTID SURGERY Past Anesthesia/Blood Transfusion Reactions: No Reported Reaction Past Psychological History: No Psychological Hx Reported Smoking Status: Current every day smoker, Heavy tobacco smoker Past Alcohol Use History: Daily, Heavy Past Drug Use History: Marijuana - Past Family History Father Family Medical History: Congestive Heart Failure (CHF) Mother Family Medical History: CVA/TIA Medications and Allergies Home Medications Medication Instructions Recorded Confirmed Type No Known Home Medications 02/19/23 02/19/23 History Allergies Allergy/AdvReac Type Severity Reaction Status Date / Time bee venom protein (honey bee) Allergy Swelling Verified 02/19/23 16:07 morphine Allergy Unknown Verified 02/19/23 16:07 Penicillins Allergy Rash/Hives Verified 02/19/23 16:07 Physical Exam Vitals: Vital Signs Temp Pulse Pulse Resp BP BP Pulse Ox 02/20/23 08:27 98.3 F 91 16 176/99 99 02/20/23 07:44 78 02/20/23 07:35 75 98 02/20/23 05:00 74 18 140/79 96 02/20/23 03:00 75 18 147/91 99 02/20/23 00:00 89 20 173/113 99 02/19/23 22:17 87 18 165/92 98 02/19/23 21:04 74 02/19/23 20:54 73 02/19/23 19:41 84 16 126/79 97 02/19/23 17:10 64 02/19/23 17:00 64 02/19/23 16:18 65 16 112/79 98 02/19/23 14:38 74 02/19/23 14:30 70 02/19/23 12:19 98 F 77 18 114/78 97 FiO2 02/20/23 08:27 02/20/23 07:44 02/20/23 07:35 21 02/20/23 05:00 02/20/23 03:00 02/20/23 00:00 02/19/23 22:17 02/19/23 21:04 02/19/23 20:54 02/19/23 19:41 02/19/23 17:10 02/19/23 17:00 02/19/23 16:18 02/19/23 14:38 02/19/23 14:30 02/19/23 12:19 Intake and Output 02/19/23 02/20/23 02/20/23 22:59 06:59 14:59 Intake Total 118 Balance 118 Intake: Oral 118 Results CBC & Chem 7: 02/19/23 13:05 02/19/23 13:05 Labs: Abnormal Lab Results - Last 24 Hours (Table) 02/19/23 02/19/23 Range/Units 13:05 13:05 RBC 3.61 L (4.30-5.90) m/uL Hgb 12.1 L (13.0-17.5) gm/dL Hct 37.0 L (39.0-53.0) % MCV 102.6 H (80.0-100.0) fL Potassium 3.2 L (3.5-5.1) mmol/L Chloride 112 H (98-107) mmol/L Creatinine 0.46 L (0.66-1.25) mg/dL Calcium 7.9 L (8.4-10.2) mg/dL Total Protein 5.5 L (6.3-8.2) g/dL Albumin 3.1 L (3.5-5.0) g/dL Serum Alcohol 325 H* mg/dL
--- NOTE | 2023-02-27 14:51 | P.DS ---
Providers Date of admission: 02/19/23 15:22 Attending physician: Christiano Cervantes MD Primary care physician: Stated None Hospital Course: Discharge diagnoses; Acute COPD exacerbation Alcohol abuse Hypokalemia Hospital course; patient is a 57-year-old gentleman with past medical history significant for alcohol abuse, hypertension presented to the ER because of shortness of breath. Patient was seen yesterday in the ER for similar complaints. Patient has been having worsening shortness of breath for the last few days. Gets short of breath on exertion. Denies any chest pain. Complaining of cough. Complaining of chest tightness. Denies any nausea or vomiting. Denies abdominal pain. Denies any fever or chills at home. Initial lab work done in the ER showed WBC 4.6, hemoglobin 12.1, platelet count 218, sodium 144, potassium 3.0, creatinine 0.46, alcohol level 325 Influenza AMB not detected, RSV not detected, COVID-19 not detected Chest x-ray done in the ER showed chronic changes without acute process CTA chest negative for PE Patient was admitted to medicine for COPD exacerbation. While in the hospital, patient stated that he does not want to stay in the hospital, patient was counseled regarding staying in the hospital and getting treated. Patient was not willing, patient left AGAINST MEDICAL ADVICE Dictation was produced using [employer] dictation software. please excuse any grammatical, word or spelling errors. Plan - Discharge Summary Discharge Rx Participant: No New Discharge Prescriptions: No Action No Known Home Medications Discharge Medication List No Known Home Medications 02/19/23 [History] Follow up Appointment(s)/Referral(s): None,Stated [Primary Care Provider] - 1-2 days Discharge Disposition: LEFT AGAINST MEDICAL ADVICE
== END 2023-02-20 14:45 | disposition left against medical advice (07) ==
LOC: EC 12:18 → 6NMEDSUR 15:22
PROVIDERS: ADMIT Internal Medicine; ATTEND Internal Medicine
DX: J44.1 Chronic obstructive pulmonary disease with (acute) exacerbation (principal); I10 Essential (primary) hypertension; E87.6 Hypokalemia; F10.229 Alcohol dependence with intoxication, unspecified; F17.200 Nicotine dependence, unspecified, uncomplicated; I25.10 Atherosclerotic heart disease of native coronary artery without angina pectoris
CPT/HCPCS: 96376; 96372; 96374; 96375; 99285; 36415; 94640 ×4; 94760; 93005; 83880; 80053; 83605; 83735; 84484; 85025; 85610; 85730; 80320; 87636; 71275; G0378 ×2; S4990; J2930 ×2; J3411; Q9967

== ENCOUNTER 2023-04-02 00:35 | Emergency (ER) | payer OTHER ==
[2023-04-02 01:00] VITALS: BP 138/76; PULSE 89; RESP 18; TEMP 98.7
[2023-04-02] MEDS ORDERED: ALBUTEROL HFA INHALER INHALATION STA (01:38)
[2023-04-02] MEDS ORDERED: DEXAMETHASONE SOD PHOSPHATE 10 MG/ML 1 ML VIAL IM STA (02:10)
--- NOTE | 2023-04-02 02:12 | ED ---
URI HPI - General Chief Complaint: Upper Respiratory Infection Stated Complaint: SOB Time Seen by Provider: 04/02/23 00:57 Source: patient Mode of arrival: ambulatory Limitations: no limitations - History of Present Illness Initial Comments: 57-year-old male presenting with chief complaint of cough and congestion ongoing for the last 2 days. Patient states that he feels short of breath. He is a pack and a half per day smoker. Nonproductive cough. No fevers or chills. No chest pain. No nausea, vomiting, abdominal pain. No palpitations. No hemoptysis. - Related Data Previous Rx's Medication Instructions Recorded Albuterol Sulfate [Albuterol 2 puff PO Q6H PRN #8.5 gm 04/02/23 Sulfate Hfa] methylPREDNISolone Dose Pack 4 mg PO DIRECTED #1 packet 04/02/23 [Medrol Dose Pack] Allergies Allergy/AdvReac Type Severity Reaction Status Date / Time bee venom protein (honey bee) Allergy Swelling Verified 04/02/23 00:55 morphine Allergy Unknown Verified 04/02/23 00:55 Penicillins Allergy Rash/Hives Verified 04/02/23 00:55 Review of Systems ROS Statement: Those systems with pertinent positive or pertinent negative responses have been documented in the HPI. ROS Other: All systems not noted in ROS Statement are negative. Past Medical History Past Medical History: Coronary Artery Disease (CAD), Chest Pain / Angina, Hy pertension History of Any Multi-Drug Resistant Organisms: None Reported Additional Past Surgical History / Comment(s): tumor removal, CAROTID SURGERY Past Anesthesia/Blood Transfusion Reactions: No Reported Reaction Past Psychological History: No Psychological Hx Reported Smoking Status: Current every day smoker, Heavy tobacco smoker Past Alcohol Use History: Daily, Heavy Past Drug Use History: Marijuana - Past Family History Father Family Medical History: Congestive Heart Failure (CHF) Mother Family Medical History: CVA/TIA General Exam Limitations: no limitations General appearance: alert, in no apparent distress Head exam: Present: atraumatic, normocephalic, normal inspection Eye exam: Present: normal appearance, EOMI Neck exam: Present: normal inspection, full ROM Respiratory exam: Present: normal lung sounds bilaterally. Absent: respiratory distress, wheezes, rales, rhonchi, stridor, accessory muscle use Cardiovascular Exam: Present: regular rate, normal rhythm, normal heart sounds. Absent: systolic murmur, diastolic murmur, rubs, gallop, clicks Neurological exam: Present: alert, oriented X3 Psychiatric exam: Present: normal affect, normal mood Skin exam: Present: warm, dry, intact, normal color. Absent: rash Course Vital Signs 04/02/23 00:54 Temperature 98.7 F Pulse Rate 89 Respiratory 18 Rate Blood Pressure 138/76 O2 Sat by Pulse 96 Oximetry Medical Decision Making - Medical Decision Making Was pt. sent in by a medical professional or institution (MARIN Zavala, FINISH PRODUCTION MANAGER, urgent care, hospital, or senior living...) When possible be specific @ -No Did you speak to anyone other than the patient for history (EMS, parent, family, police, friend...)? What history was obtained from this source @ -No Did you review nursing and triage notes (agree or disagree)? Why? @ -I reviewed and agree with nursing and triage notes Were old charts reviewed (outside hosp., previous admission, EMS record, old EKG, old radiological studies, urgent care reports/EKG's, senior living records)? Report findings @ -No old charts were reviewed Differential Diagnosis (chest pain, altered mental status, abdominal pain women, abdominal pain men, vaginal bleeding, weakness, fever, dyspnea, syncope, headache, dizziness, GI bleed, back pain, seizure, CVA, palpatations, mental health, musculoskeletal)? @ -MDM Differential: Covid, influenza, RSV, pneumonia, bronchitis, this is not an all-inclusive list EKG interpreted by me (3pts min.). @ -As above X-rays interpreted by me (1pt min.). @ -Chest x-ray shows no acute process CT interpreted by me (1pt min.). @ -None done U/S interpreted by me (1pt. min.). @ -None done What testing was considered but not performed or refused? (CT, X-rays, U/S, labs)? Why? @ -None What meds were considered but not given or refused? Why? @ -None Did you discuss the management of the patient with other professionals (professionals i.e. MARIN Zavala, FINISH PRODUCTION MANAGER, lab, RT, psych nurse, social media coordinator, machine stuffer automatic, teacher, product safety officer, case assembler)? Give summary @ -No Was smoking cessation discussed for >3mins.? @ -yes Was critical care preformed (if so, how long)? @ -No Were there social determinants of health that impacted care today? How? (Homelessness, low income, unemployed, alcoholism, drug addiction, transportation, low edu. Level, literacy, decrease access to med. care, [facility], rehab)? @ -No Was there de-escalation of care discussed even if they declined (Discuss DNR or withdrawal of care, Hospice)? DNR status @ -No What co-morbidities impacted this encounter? (DM, HTN, Smoking, COPD, CAD, Cancer, CVA, ARF, Chemo, Hep., AIDS, mental health diagnosis, sleep apnea, morbid obesity)? @ -None Was patient admitted / discharged? Hospital course, mention meds given and route, prescriptions, significant lab abnormalities, going to OR and other pertinent info. @ -57-year-old male presenting with chief complaint of cough and congestion. Patient is a pack and a half per day smoker. Heart and lungs are clear to auscultation bilateral signs are WNL. Patient is negative for influenza, RSV, and Covid. Chest x-rays negative for acute process. Patient is given albuterol inhaler and Medrol Dosepak educated on supportive management at smoking cessation. Follow-up with PCP. Report back to ER with any new or worsening symptoms. Discussed return parameters and answered all questions. Patient conveyed verbal understanding and agreed to the plan. I discussed this case in detail with my attending Dr. Patel Undiagnosed new problem with uncertain prognosis? @ -No Drug Therapy requiring intensive monitoring for toxicity (Heparin, Nitro, Insulin, Cardizem)? @ -No Were any procedures done? @ -No Diagnosis/symptom? @ -URI Acute, or Chronic, or Acute on Chronic? @ -acute Uncomplicated (without systemic symptoms) or Complicated (systemic symptoms)? @ -Uncomplicated Side effects of treatment? @ -No Exacerbation, Progression, or Severe Exacerbation? @ -No Poses a threat to life or bodily function? How? (Chest pain, [place], [place], pneumonia, PE, COPD, DKA, ARF, appy, cholecystitis, CVA, Diverticulitis, Homicidal, Suicidal, threat to staff... and all critical care pts) @ -No - Lab Data Lab Results 04/02/23 Range/Units 00:57 Influenza Type A (PCR) Not Detected (Not Detectd) Influenza Type B (PCR) Not Detected (Not Detectd) RSV (PCR) Not Detected (Not Detectd) SARS-CoV-2 (PCR) Not Detected (Not Detectd) Disposition Clinical Impression: Acute upper respiratory infection Disposition: HOME SELF-CARE Condition: Good Instructions (If sedation given, give patient instructions): Upper Respiratory Infection (ED) Additional Instructions: PCP. Report back to ER with any new or worsening symptoms. Prescriptions: Albuterol Sulfate [Albuterol Sulfate Hfa] 2 puff PO Q6H PRN #8.5 gm PRN Reason: Shortness Of Breath methylPREDNISolone Dose Pack [Medrol Dose Pack] 4 mg PO DIRECTED #1 packet Is patient prescribed a controlled substance at d/c from ED?: No Referrals: Odessa Julio MD [Primary Care Provider] - 1-2 days Time of Disposition: 02:43
--- NOTE | 2023-04-02 07:16 | XR ---
EXAMINATION TYPE: XR chest 2V DATE OF EXAM: 04/02/2023 1:20 AM CLINICAL INDICATION:Male, 57 years old with history of cough; COMPARISON: Chest radiographs from 02/11/2023 TECHNIQUE: XR chest 2V Frontal and lateral views of the chest. FINDINGS: Lungs/Pleura: There is no evidence of pleural effusion, focal consolidation, or pneumothorax. Pulmonary vascularity: Unremarkable. Heart/mediastinum: Cardiomediastinal silhouette is unremarkable. Musculoskeletal: No acute osseous pathology. IMPRESSION: No acute cardiopulmonary disease/process. No significant change from prior.
== END 2023-04-02 02:59 | disposition home or self-care (01) ==
LOC: EC 00:35
DX: J06.9 Acute upper respiratory infection, unspecified (principal); I25.10 Atherosclerotic heart disease of native coronary artery without angina pectoris; I10 Essential (primary) hypertension; F17.200 Nicotine dependence, unspecified, uncomplicated; F12.90 Cannabis use, unspecified, uncomplicated; Z88.0 Allergy status to penicillin; Z91.030 Bee allergy status; Z88.5 Allergy status to narcotic agent; Z20.822 Contact with and (suspected) exposure to COVID-19
CPT/HCPCS: 94640; 87636; 71046; 99285; 96372; J1100

== ENCOUNTER 2023-04-16 17:53 | Emergency (ER) | payer OTHER ==
[2023-04-16 18:09] VITALS: RESP 18
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
[2023-04-16 19:39] VITALS: BP 121/78; PULSE 81; TEMP 98.1
== END 2023-04-16 19:23 | disposition home or self-care (01) ==
LOC: EC 17:53
DX: S20.212A Contusion of left front wall of thorax, initial encounter (principal); I10 Essential (primary) hypertension; I25.10 Atherosclerotic heart disease of native coronary artery without angina pectoris; F12.90 Cannabis use, unspecified, uncomplicated; F17.200 Nicotine dependence, unspecified, uncomplicated; Z91.030 Bee allergy status; Z88.0 Allergy status to penicillin; Y09 Assault by unspecified means
CPT/HCPCS: 99284

== ENCOUNTER 2023-05-29 02:46 | Emergency (ER) | payer OTHER ==
[2023-05-29 02:53] VITALS: BP 142/92; PULSE 100; RESP 20; TEMP 98.9
[2023-05-29 03:11] LABS: Basophils # (A) 0.1 k/uL (0-0.2); Basophils % (A) 1 %; Eosinophils # (A) 0.2 k/uL (0-0.7); Eosinophils % (A) 2 %; HCT 43.7 % (39.0-53.0); HGB 14.7 gm/dL (13.0-17.5); Lymphocytes # (A) 2.4 k/uL (1.0-4.8); Lymphocytes % (A) 25 %; MCH 36.2 pg (25.0-35.0); MCHC 33.6 g/dL (31.0-37.0); MCV 107.8 fL (80.0-100.0); Macrocytosis Moderate; Mean Platelet Volume 7.9; Monocytes # (A) 0.9 k/uL (0-1.0); Monocytes % (A) 9 %; Neutrophils # (A) 5.8 k/uL (1.3-7.7); Neutrophils % (A) 61 %; Platelet Count 216 k/uL (150-450); RBC 4.05 m/uL (4.30-5.90); RDW 13.8 % (11.5-15.5); WBC 9.5 k/uL (3.8-10.6)
[2023-05-29 03:24] LABS: Phosphorus 2.8 mg/dL (2.5-4.5)
[2023-05-29 03:37] LABS: ALT 31 U/L (4-49); AST 68 U/L (17-59); African American GFR (CKD) >90 (>60 ml/min/1.73 sqM); Albumin 3.9 g/dL (3.5-5.0); Alkaline Phosphatase 96 U/L (38-126); Anion Gap 13 mmol/L; Blood Urea Nitrogen 12 mg/dL (9-20); Calcium 8.8 mg/dL (8.4-10.2); Carbon Dioxide 26 mmol/L (22-30); Chloride 103 mmol/L (98-107); Glucose 105 mg/dL (74-99); Magnesium 1.6 mg/dL (1.6-2.3); Non-African American GFR(CKD) >90 (>60 ml/min/1.73 sqM); Potassium 3.4 mmol/L (3.5-5.1); Sodium 142 mmol/L (137-145); Total Bilirubin 0.4 mg/dL (0.2-1.3); Total Protein 6.7 g/dL (6.3-8.2)
[2023-05-29 03:51] LABS: INR 0.9 (<1.2); Partial Thromboplastin Time 24.5 sec (22.0-30.0); Prothrombin Time 10.3 sec (10.0-12.5)
--- NOTE | 2023-05-29 05:43 | XR ---
EXAM: XR Chest, 2 Views CLINICAL HISTORY: ITS.REASON XR Reason: Chest Pain TECHNIQUE: Frontal and lateral views of the chest. COMPARISON: XR Chest dated 04/16/23 FINDINGS: Lungs: Unremarkable. No consolidation. Pleural space: Unremarkable. No pneumothorax. Heart: Unremarkable. No cardiomegaly. Mediastinum: Unremarkable. Normal mediastinal contour. Bones/joints: Unremarkable. No acute fracture. IMPRESSION: No evidence of acute cardiopulmonary disease.
== END 2023-05-29 04:10 | disposition left against medical advice (07) ==
LOC: EC 02:46
DX: Z53.21 Procedure and treatment not carried out due to patient leaving prior to being seen by health care provider (principal); R06.02 Shortness of breath
CPT/HCPCS: 36415; 71046; 80053; 80320; 83690; 83735; 84100; 84484; 85025; 85610; 85730; 93005; 99499

== ENCOUNTER 2024-01-09 15:54 | Emergency (ER) | payer SELFPAY ==
[2024-01-09 16:10] VITALS: TEMP 97.5
[2024-01-09 17:04] VITALS: BP 130/86; PULSE 86; RESP 20
--- NOTE | 2024-01-09 17:05 | ED ---
Altered Mental Status HPI - General Chief Complaint: Altered Mental Status Stated Complaint: ETOH Time Seen by Provider: 01/09/24 15:55 Source: patient, EMS, RN notes reviewed, old records reviewed Mode of arrival: EMS Limitations: altered mental status - History of Present Illness Initial Comments: QN 58 male to the ED co altered mental status and intoxication - Related Data Previous Rx's Medication Instructions Recorded Albuterol Sulfate [Albuterol 2 puff PO Q6H PRN #8.5 gm 04/02/23 Sulfate Hfa] methylPREDNISolone Dose Pack 4 mg PO DIRECTED #1 packet 04/02/23 [Medrol Dose Pack] Allergies Allergy/AdvReac Type Severity Reaction Status Date / Time bee venom protein (honey bee) Allergy Swelling Verified 04/16/23 18:03 morphine Allergy Unknown Verified 04/16/23 18:03 Penicillins Allergy Rash/Hives Verified 04/16/23 18:03 Review of Systems ROS Statement: Those systems with pertinent positive or pertinent negative responses have been documented in the HPI. ROS Other: All systems not noted in ROS Statement are negative. Past Medical History Past Medical History: Coronary Artery Disease (CAD), Chest Pain / Angina, Hypertension History of Any Multi-Drug Resistant Organisms: None Reported Additional Past Surgical History / Comment(s): tumor removal, CAROTID SURGERY Past Anesthesia/Blood Transfusion Reactions: No Reported Reaction Past Psychological History: No Psychological Hx Reported Smoking Status: Current every day smoker, Heavy tobacco smoker Past Alcohol Use History: Daily, Heavy Past Drug Use History: Marijuana - Past Family History Father Family Medical History: Congestive Heart Failure (CHF) Mother Family Medical History: CVA/TIA Course Vital Signs 01/09/24 01/09/24 01/09/24 16:02 16:10 17:02 Temperature 97.5 F L Pulse Rate 59 L 52 L 86 Respiratory 18 16 20 Rate Blood Pressure 132/92 133/92 130/86 O2 Sat by Pulse 94 L 96 98 Oximetry - Reevaluation(s) Reevaluation #1: 01/09/24 16:05 QN completed by myself Dr Ptael Disposition Clinical Impression: Left against medical advice Disposition: LEFT AGAINST MEDICAL ADVICE Condition: Fair Is patient prescribed a controlled substance at d/c from ED?: No Referrals: None,Stated [Primary Care Provider] - 1-2 days
== END 2024-01-09 17:04 | disposition left against medical advice (07) ==
LOC: EC 15:54
DX: Z53.29 Procedure and treatment not carried out because of patient's decision for other reasons (principal); F17.200 Nicotine dependence, unspecified, uncomplicated; Z91.030 Bee allergy status; Z88.0 Allergy status to penicillin
CPT/HCPCS: 99284

== ENCOUNTER 2024-03-26 15:28 | Emergency (ER) | payer SELFPAY ==
[2024-03-26 15:31] VITALS: RESP 18; TEMP 98
--- NOTE | 2024-03-26 16:05 | ED ---
Chest Pain HPI - General Source: patient, RN notes reviewed Mode of arrival: ambulatory Limitations: no limitations <Katherin Huerta - Last Filed: 03/26/24 16:03> - General Source: patient, RN notes reviewed, old records reviewed <Rojelio Fuentes - Last Filed: 03/26/24 21:09> - General Chief Complaint: Chest Pain Stated Complaint: HTN, rq meds Time Seen by Provider: 03/26/24 16:00 - History of Present Illness Initial Comments: Quick Note: This is a 58-year-old male who presents to the emergency department for chest pain. States that it started 2 days ago. Describes this as a dull ache with radiation into the back. Reports associated shortness of breath. Denies a history of heart attacks but states that he has a history of angina. States that he has also been out of his blood pressure medication. (Katherin Huerta) Patient is a 58-year-old male who presents emergency department complaining of chest pain. He has a history of angina. States he has been having this pain for multiple days. Is located substernally. Denies any other acute complaints. Denies radiation, shortness of breath, nausea, vomiting, diaphoresis. Denies abdominal pain. He has been without his blood pressure medications. Presents for further evaluation at this time. Any history of cardiac stenting (Rojelio Fuentes) - Related Data Previous Rx's Medication Instructions Recorded Albuterol Sulfate [Albuterol 2 puff PO Q6H PRN #8.5 gm 04/02/23 Sulfate Hfa] methylPREDNISolone Dose Pack 4 mg PO DIRECTED #1 packet 04/02/23 [Medrol Dose Pack] Metoprolol Tartrate [Lopressor] 25 mg PO BID 30 Days #60 tablet 03/26/24 Nitroglycerin Sl Tabs [Nitrostat] 0.4 mg SUBLINGUAL Q5M PRN #25 tab 03/26/24 Allergies Allergy/AdvReac Type Severity Reaction Status Date / Time bee venom protein (honey bee) Allergy Swelling Verified 03/26/24 15:31 morphine Allergy Unknown Verified 03/26/24 15:31 Penicillins Allergy Rash/Hives Verified 03/26/24 15:31 Review of Systems ROS Other: All systems not noted in ROS Statement are negative. <Katherin Huerta - Last Filed: 03/26/24 16:03> ROS Other: All systems not noted in ROS Statement are negative. <Rojelio Fuentes - Last Filed: 03/26/24 21:09> ROS Statement: Those systems with pertinent positive or pertinent negative responses have been documented in the HPI. Review of Systems: CONST: Denies fever EYES: Denies blurry vision ENT: Denies nasal congestion C/V: Denies Chest pain RESP: Denies shortness of breath GI: Denies abdominal pain : Denies dysuria SKIN: Denies rash. MSK: Denies joint pain. NEURO: Denies headache (Rojelio Fuentes) EKG Findings - EKG Comments: EKG Findings:: 12-lead Electrocardiogram Interpretation Note. EKG was reviewed and interpreted by myself. 12-lead ECG performed at 1536 is interpreted by me as revealing sinus bradycardia at a rate of 54 beats per minute. [place] is normal. [place] interval is 155 ms, QRS duration is 93 ms, QTc is 437 ms.. There were no ST or T wave abnormalities to suggest myocardial ischemia or injury. R wave progression across the precordium was satisfactory. By my interpretation this EKG is non-diagnostic for acute ischemia. 12-lead Electrocardiogram Interpretation Note. EKG was reviewed and interpreted by myself. 12-lead ECG performed at 2010 is interpreted by me as revealing sinus bradycardia at a rate of 49 beats per minute. [place] is normal. [place] interval is 155 ms, QRS duration is 86 ms, QTc is 433 ms.. There were no ST or T wave abnormalities to suggest myocardial ischemia or injury. R wave progression across the precordium was satisfactory. By my interpretation this EKG is non-diagnostic for acute ischemia. No dynamic changes when compared with EKG from earlier today. - EKG Results: EKG: interpreted by ERMD <Rojelio Fuentes - Last Filed: 03/26/24 21:09> Past Medical History Past Medical History: Coronary Artery Disease (CAD), Chest Pain / Angina, Hypertension History of Any Multi-Drug Resistant Organisms: None Reported Past Surgical History: Hernia Repair Additional Past Surgical History / Comment(s): tumor removal, CAROTID SURGERY Past Anesthesia/Blood Transfusion Reactions: No Reported Reaction Past Psychological History: No Psychological Hx Reported Smoking Status: Current every day smoker, Heavy tobacco smoker Past Alcohol Use History: Daily, Heavy Past Drug Use History: Marijuana - Past Family History Father Family Medical History: Congestive Heart Failure (CHF) Mother Family Medical History: CVA/TIA <Katherin Huerta - Last Filed: 03/26/24 16:03> General Exam Limitations: no limitations <Katherin Huerta - Last Filed: 03/26/24 16:03> <Rojelio Fuentes - Last Filed: 03/26/24 21:09> - General Exam Comments Initial Comments: Visual Physical Exam Vital signs reviewed General: Well-appearing, nontoxic, no acute distress. Head: Normocephalic, atraumatic Eyes: PERRLA, EOMI ENT: Airway patent Chest: Nonlabored breathing Skin: No visual rash, normal skin tone Neuro: Alert and oriented 3 Musculoskeletal: No gross abnormalities (Katherin Huerta) General: Appears in no acute distress. HEAD: Normal with no signs of head trauma. EYES: PERRLA, EOMI, conjunctiva normal, no discharge. ENT: Hearing grossly intact, normal oropharynx. RESPIRATORY: Clear breath sounds bilaterally. No wheezes, rales, or rhonchi. C/V: Regular rate and rhythm. S1 and S2 auscultated, no edema, peripheral pulses 2+ and intact throughout chest pain not reproducible on palpation. ABD: Abd is soft, nontender, nondistended EXT: Normal range of motion, no obvious deformity SKIN: No rashes or lesions observed on exposed skin. NEURO: Alert and oriented x 4. (Rojelio Fuentes) Course Vital Signs 03/26/24 15:29 Temperature 98 F Pulse Rate 62 Respiratory 18 Rate Blood Pressure 150/85 O2 Sat by Pulse 95 Oximetry Chest Pain MDM <Katherin Huerta - Last Filed: 03/26/24 16:03> <Rojelio Fuentes - Last Filed: 03/26/24 21:09> - MDM I performed the QuickNote portion of this chart. Signed Katherin Huerta PA-C. (Katherin Huerta) Was pt. sent in by a medical professional or institution ([facility], MANAGER AREA, urgent care, hospital, or [facility]...) When possible be specific @ -No Did you speak to anyone other than the patient for history (EMS, parent, family, police, friend...)? What history was obtained from this source @ -No Did you review nursing and triage notes (agree or disagree)? Why? @ -I reviewed and agree with nursing and triage notes Were old charts reviewed (outside hosp., previous admission, EMS record, old EKG, old radiological studies, urgent care reports/EKG's, [facility] records)? Report findings @ -Reviewed EKG from January 2023. When compared with today's EKG, no acute changes. Differential Diagnosis (chest pain, altered mental status, abdominal pain women, abdominal pain men, vaginal bleeding, weakness, fever, dyspnea, syncope, headache, dizziness, GI bleed, back pain, seizure, CVA, palpatations, mental health, musculoskeletal)? @ -Differential Chest Pain: Stable Angina, Unstable Angina, STEMI, NSTEMI Aortic Dissection, Pneumothorax, Musculoskeletal, Esophageal Spasm GERD, Cholecystitis, Pancreatitis, Zoster, this is not meant to be an all-inclusive list. EKG interpreted by me (3pts min.). @ -As above X-rays interpreted by me (1pt min.). @ -Chest x-ray reveals no obvious acute cardiopulmonary process. CT interpreted by me (1pt min.). @ -None done U/S interpreted by me (1pt. min.). @ -None done What testing was considered but not performed or refused? (CT, X-rays, U/S, labs)? Why? @ -None What meds were considered but not given or refused? Why? @ -None Did you discuss the management of the patient with other professionals (professionals i.e. , PA, MANAGER AREA, lab, RT, psych nurse, social services coordinator, rehabilitation counselor, teacher, airplane first officer, pillowcase cleaner)? Give summary @ -No Was smoking cessation discussed for >3mins.? @ -No Was critical care preformed (if so, how long)? @ -No Were there social determinants of health that impacted care today? How? (Homelessness, low income, unemployed, alcoholism, drug addiction, transportation, low edu. Level, literacy, decrease access to med. care, detention, rehab)? @ -No Was there de-escalation of care discussed even if they declined (Discuss DNR or withdrawal of care, Hospice)? DNR status @ -No What co-morbidities impacted this encounter? (DM, HTN, Smoking, COPD, CAD, Cancer, CVA, ARF, Chemo, Hep., AIDS, mental health diagnosis, sleep apnea, morbid obesity)? @ -None Was patient admitted / discharged? Hospital course, mention meds given and route, prescriptions, significant lab abnormalities, going to OR and other pertinent info. @ -Patient presents with chest pain for multiple days. No significant chest pain at this time. Is without his home prescriptions of metoprolol and nitro as well. She requesting refills and would like to go home. Workup started as a quick note. I evaluated the patient when he was placed in a room. He is amenable to obtaining repeat troponin and EKG but does not want to spend the night. I did offer observation admission which she declined. Patient will be given dose of his home metoprolol. Currently is asymptomatic and has no significant complaints. Vitals within acceptable limits. Troponin at the 3-hour lloyd remains undetectable. Second EKG shows no dynamic changes. I updated the patient. He will be discharged home at this time. Symptoms remain controlled. He was in agreement this plan. Strict return precautions discussed. Given prescription for his nitro tablets of metoprolol. I will provide the patient with a prescription for metoprolol, nitro tablets. I instructed the patient to follow up with their PCP in the next 1-3 days.. I explained that the patient should return to the emergency department if they experience any worsening symptoms. Strict return precautions were discussed with the patient. The patient expressed understanding of these instructions. I answered all questions that the patient had. The patient was discharged home in good condition with their prescriptions and follow up information. Undiagnosed new problem with uncertain prognosis? @ -No Drug Therapy requiring intensive monitoring for toxicity (Heparin, Nitro, Insulin, Cardizem)? @ -No Were any procedures done? @ -No Diagnosis/symptom? @ -Atypical chest pain Acute, or Chronic, or Acute on Chronic? @ -Acute on chronic Uncomplicated (without systemic symptoms) or Complicated (systemic symptoms)? @ -Uncomplicated Side effects of treatment? @ -No Exacerbation, Progression, or Severe Exacerbation? @ -No Poses a threat to life or bodily function? How? (Chest pain, [place], [place], pneumonia, PE, COPD, DKA, ARF, appy, cholecystitis, CVA, Diverticulitis, Homicidal, Suicidal, threat to staff... and all critical care pts) @ -Unlikely at this time Diagnosis/symptom? @ -Medication refill Acute, or Chronic, or Acute on Chronic? @ -Acute Uncomplicated (without systemic symptoms) or Complicated (systemic symptoms)? @ -Uncomplicated Side effects of treatment? @ -None Exacerbation, Progression, or Severe Exacerbation] @ -No Poses a threat to life or bodily function? @ -No (Rojelio Fuentes) Disposition <Katherin Huerta - Last Filed: 03/26/24 16:03> Is patient prescribed a controlled substance at d/c from ED?: No Time of Disposition: 21:00 <Rojelio Fuentes - Last Filed: 03/26/24 21:09> Clinical Impression: Chest pain Disposition: HOME SELF-CARE Condition: Good Instructions (If sedation given, give patient instructions): Chest Pain (ED) Prescriptions: Metoprolol Tartrate [Lopressor] 25 mg PO BID 30 Days #60 tablet Nitroglycerin Sl Tabs [Nitrostat] 0.4 mg SUBLINGUAL Q5M PRN #25 tab PRN Reason: Chest Pain Referrals: None,Stated [Primary Care Provider] - 1-2 days Forms: [facility] PCPs
[2024-03-26 16:07] LABS: Basophils # (A) 0.1 k/uL (0-0.2); Basophils % (A) 1 %; Eosinophils # (A) 0.1 k/uL (0-0.7); Eosinophils % (A) 1 %; HCT 48.3 % (39.0-53.0); HGB 15.3 gm/dL (13.0-17.5); Lymphocytes # (A) 2.8 k/uL (1.0-4.8); Lymphocytes % (A) 32 %; MCH 35.7 pg (25.0-35.0); MCHC 31.7 g/dL (31.0-37.0); MCV 112.7 fL (80.0-100.0); Macrocytosis Marked; Monocytes # (A) 0.6 k/uL (0-1.0); Monocytes % (A) 7 %; Neutrophils # (A) 4.8 k/uL (1.3-7.7); Neutrophils % (A) 56 %; Platelet Count 169 k/uL (150-450); RBC 4.28 m/uL (4.30-5.90); RDW 13.1 % (11.5-15.5); WBC 8.7 k/uL (3.8-10.6)
[2024-03-26 16:19] LABS: ALT 38 U/L (4-49); AST 65 U/L (17-59); African American GFR (CKD) >90 (>60 ml/min/1.73 sqM); Albumin 3.2 g/dL (3.5-5.0); Alkaline Phosphatase 46 U/L (38-126); Anion Gap 5 mmol/L; Blood Urea Nitrogen 7 mg/dL (9-20); Calcium 8.8 mg/dL (8.4-10.2); Carbon Dioxide 19 mmol/L (22-30); Chloride 110 mmol/L (98-107); Glucose 119 mg/dL (74-99); Magnesium 1.6 mg/dL (1.6-2.3); Non-African American GFR(CKD) >90 (>60 ml/min/1.73 sqM); Potassium 3.9 mmol/L (3.5-5.1); Sodium 134 mmol/L (137-145); Total Bilirubin 0.5 mg/dL (0.2-1.3); Total Protein 5.1 g/dL (6.3-8.2)
[2024-03-26 16:40] LABS: INR 0.9 (<1.2); Partial Thromboplastin Time 22.7 sec (22.0-30.0); Prothrombin Time 10.3 sec (10.0-12.5)
--- NOTE | 2024-03-26 17:22 | XR ---
EXAMINATION TYPE: XR chest 2V DATE OF EXAM: 03/26/2024 5:05 PM CLINICAL INDICATION: Male, 58 years old with history of Chest Pain; [facility] COMPARISON: 05/29/2023 TECHNIQUE: XR chest 2V Frontal view of the chest. FINDINGS: Lungs/Pleura: There is no evidence of pleural effusion, focal consolidation, or pneumothorax. Pulmonary vascularity: Unremarkable. Heart/mediastinum: Cardiomediastinal silhouette is unremarkable. Musculoskeletal: No acute osseous pathology. Other findings: None IMPRESSION: No acute cardiopulmonary disease/process. [facility] Igor Newman, , 03/26/2024 5:20 PM
[2024-03-26] MEDS: METOPROLOL TARTRATE 25 MG TAB PO STA (20:34)
[2024-03-26 21:35] VITALS: BP 150/80; PULSE 60
== END 2024-03-26 21:41 | disposition home or self-care (01) ==
LOC: EC 15:28
DX: R00.1 Bradycardia, unspecified (principal); R07.89 Other chest pain; F17.200 Nicotine dependence, unspecified, uncomplicated; Z88.0 Allergy status to penicillin; Z88.5 Allergy status to narcotic agent; Z91.030 Bee allergy status
CPT/HCPCS: 36415; 71046; 80053; 83735; 84484; 85025; 85610; 85730; 93005; 99285

== ENCOUNTER 2024-06-28 12:43 | Emergency (ER) | payer OTHER ==
[2024-06-28 12:49] VITALS: BP 131/83; PULSE 70; RESP 18; TEMP 97.4
--- NOTE | 2024-06-28 13:20 | ED ---
General Adult HPI - General Chief complaint: Chest Pain Stated complaint: Chest Pain SOB Time Seen by Provider: 06/28/24 12:57 Source: patient, RN notes reviewed, old records reviewed Mode of arrival: ambulatory Limitations: no limitations - History of Present Illness Initial comments: 58-year-old male presenting for evaluation of elevated blood pressure. Patient has history of hypertension and is on metoprolol. He was donating plasma today and today measured his blood pressure and stated that it was quite elevated. He was not allowed to donate plasma and they asked that the patient rest awaiting a blood pressure recheck. He developed some lightheadedness and chest discomfort. Symptoms are nearly completely resolved at the time my evaluation. He has no prior history of CAD. No headache. No abdominal pain. No vomiting. - Related Data Home Medications Medication Instructions Recorded Confirmed Azithromycin [Zithromax Z Pack] See Taper PO DIRECTED 06/28/24 06/28/24 Nitroglycerin Sl Tabs [Nitrostat] 0.4 mg SL Q5M PRN 06/28/24 06/28/24 Previous Rx's Medication Instructions Recorded Metoprolol Tartrate [Lopressor] 25 mg PO BID 30 Days #60 tablet 03/26/24 Allergies Allergy/AdvReac Type Severity Reaction Status Date / Time bee venom protein (honey bee) Allergy Swelling Verified 06/28/24 14:00 morphine Allergy Unknown Verified 06/28/24 14:00 Penicillins Allergy Rash/Hives Verified 06/28/24 14:00 Review of Systems ROS Statement: Those systems with pertinent positive or pertinent negative responses have been documented in the HPI. ROS Other: All systems not noted in ROS Statement are negative. Past Medical History Past Medical History: Coronary Artery Disease (CAD), Chest Pain / Angina, Hypertension History of Any Multi-Drug Resistant Organisms: None Reported Past Surgical History: Hernia Repair Additional Past Surgical History / Comment(s): tumor removal, CAROTID SURGERY Past Anesthesia/Blood Transfusion Reactions: No Reported Reaction Past Psychological History: No Psychological Hx Reported Smoking Status: Current every day smoker, Heavy tobacco smoker Past Alcohol Use History: Daily, Heavy Past Drug Use History: Marijuana - Past Family History Father Family Medical History: Congestive Heart Failure (CHF) Mother Family Medical History: CVA/TIA General Exam Limitations: no limitations General appearance: alert, in no apparent distress Head exam: Present: atraumatic, normocephalic Eye exam: Present: normal appearance, PERRL ENT exam: Present: normal exam Neck exam: Present: normal inspection. Absent: tenderness, meningismus Respiratory exam: Present: normal lung sounds bilaterally. Absent: respiratory distress, wheezes Cardiovascular Exam: Present: regular rate, normal rhythm GI/Abdominal exam: Present: soft. Absent: distended, tenderness, guarding Extremities exam: Present: normal inspection, normal capillary refill. Absent: pedal edema Neurological exam: Present: alert, oriented X3 Psychiatric exam: Present: normal affect, normal mood Skin exam: Present: warm, dry, intact Course Vital Signs 06/28/24 12:46 Temperature 97.4 F L Pulse Rate 70 Respiratory 18 Rate Blood Pressure 131/83 O2 Sat by Pulse 99 Oximetry Medical Decision Making - Medical Decision Making Was pt. sent in by a medical professional or institution (MARIN Zavala, INSURANCE SPECIALIST, urgent care, hospital, or fci...) When possible be specific @ -No Did you speak to anyone other than the patient for history (EMS, parent, family, police, friend...)? What history was obtained from this source @ -No Did you review nursing and triage notes (agree or disagree)? Why? @ -I reviewed and agree with nursing and triage notes Were old charts reviewed (outside hosp., previous admission, EMS record, old EKG, old radiological studies, urgent care reports/EKG's, fci records)? Report findings @ -No old charts were reviewed Differential Chest Pain: Stable Angina, Unstable Angina, STEMI, NSTEMI Aortic Dissection, Pneumothorax, Musculoskeletal, Esophageal Spasm GERD, Cholecystitis, Pancreatitis, Zoster, this is not meant to be an all-inclusive list. EKG interpreted by me (3pts min.). @Sinus rhythm rate of 69, DC interval 155, QRS duration 94, QTc [address] segment elevation X-rays interpreted by me (1pt min.). @Chest x-ray is negative for acute acute cardiopulmonary findings CT interpreted by me (1pt min.). @ -None done U/S interpreted by me (1pt. min.). @ -None done What testing was considered but not performed or refused? (CT, X-rays, U/S, labs)? Why? @ -None What meds were considered but not given or refused? Why? @ -None Did you discuss the management of the patient with other professionals (professionals i.e. , PA, INSURANCE SPECIALIST, lab, RT, psych nurse, web content & social media manager, plastic sheeting cutter, teacher, toxics program officer, case supervisor)? Give summary @ -No Was smoking cessation discussed for >3mins.? @ -No Was critical care preformed (if so, how long)? @ -No Were there social determinants of health that impacted care today? How? (Homelessness, low income, unemployed, alcoholism, drug addiction, transportation, low edu. Level, literacy, decrease access to med. care, snf, rehab)? @ -No Was there de-escalation of care discussed even if they declined (Discuss DNR or withdrawal of care, Hospice)? DNR status @ -No What co-morbidities impacted this encounter? (DM, HTN, Smoking, COPD, CAD, Cancer, CVA, ARF, Chemo, Hep., AIDS, mental health diagnosis, sleep apnea, morbid obesity)? @Hypertension Was patient admitted / discharged? Hospital course, mention meds given and route, prescriptions, significant lab abnormalities, going to OR and other pertinent info. @ -58 male presenting for evaluation of hypertension, lightheadedness while attempting to donate plasma. Patient pressure is normal upon arrival. He is asymptomatic in sinus rhythm. He has normal CBC, normal CMP, negative troponin. Protein is mildly low likely from plasma donation. Patient is instructed on oral hydration and monitoring of vital signs. He will follow-up with his [facility] care provider. Undiagnosed new problem with uncertain prognosis? @ -No Drug Therapy requiring intensive monitoring for toxicity (Heparin, Nitro, Insulin, Cardizem)? @ -No Were any procedures done? @ -No Diagnosis/symptom? @ -Hypertension Acute, or Chronic, or Acute on Chronic? @Acute on chronic Uncomplicated (without systemic symptoms) or Complicated (systemic symptoms)? @ -Default Side effects of treatment? @ -No Exacerbation, Progression, or Severe Exacerbation? @ -No Poses a threat to life or bodily function? How? (Chest pain, USA, MD, pneumonia, PE, COPD, DKA, ARF, appy, cholecystitis, CVA, Diverticulitis, Homicidal, Suicidal, threat to staff... and all critical care pts) @ -Low risk at this time - Lab Data Result diagrams: 06/28/24 13:14 06/28/24 13:14 Lab Results 06/28/24 06/28/24 06/28/24 Range/Units 13:14 13:14 13:14 WBC 10.1 (3.8-10.6) k/uL RBC 4.50 (4.30-5.90) m/uL Hgb 15.8 (13.0-17.5) gm/dL Hct 49.2 (39.0-53.0) % MCV 109.3 H (80.0-100.0) fL MCH 35.0 (25.0-35.0) pg MCHC 32.1 (31.0-37.0) g/dL RDW 13.8 (11.5-15.5) % Plt Count 221 (150-450) k/uL MPV 8.0 Neutrophils % 70 % Lymphocytes % 19 % Monocytes % 8 % Eosinophils % 0 % Basophils % 1 % Neutrophils # 7.1 (1.3-7.7) k/uL Lymphocytes # 1.9 (1.0-4.8) k/uL Monocytes # 0.8 (0-1.0) k/uL Eosinophils # 0.0 (0-0.7) k/uL Basophils # 0.1 (0-0.2) k/uL Manual Slide Review Performed Macrocytosis Marked A PT 10.3 (10.0-12.5) sec INR 0.9 (<1.2) APTT 22.1 (22.0-30.0) sec Sodium 141 (137-145) mmol/L Potassium 3.6 (3.5-5.1) mmol/L Chloride 105 (98-107) mmol/L Carbon Dioxide 27 (22-30) mmol/L Anion Gap 9 mmol/L BUN 8 L (9-20) mg/dL Creatinine 0.64 L (0.66-1.25) mg/dL Est GFR (CKD-EPI)AfAm >90 (>60 ml/min/1.73 sqM) Est GFR (CKD-EPI)NonAf >90 (>60 ml/min/1.73 sqM) Glucose 80 (74-99) mg/dL Calcium 9.3 (8.4-10.2) mg/dL Magnesium 2.2 (1.6-2.3) mg/dL Total Bilirubin 0.9 (0.2-1.3) mg/dL AST 24 (17-59) U/L ALT 14 (4-49) U/L Alkaline Phosphatase 57 (38-126) U/L Troponin I (0.000-0.034) ng/mL Total Protein 6.0 L (6.3-8.2) g/dL Albumin 3.9 (3.5-5.0) g/dL 06/28/24 Range/Units 13:14 WBC (3.8-10.6) k/uL RBC (4.30-5.90) m/uL Hgb (13.0-17.5) gm/dL Hct (39.0-53.0) % MCV (80.0-100.0) fL MCH (25.0-35.0) pg MCHC (31.0-37.0) g/dL RDW (11.5-15.5) % Plt Count (150-450) k/uL MPV Neutrophils % % Lymphocytes % % Monocytes % % Eosinophils % % Basophils % % Neutrophils # (1.3-7.7) k/uL Lymphocytes # (1.0-4.8) k/uL Monocytes # (0-1.0) k/uL Eosinophils # (0-0.7) k/uL Basophils # (0-0.2) k/uL Manual Slide Review Macrocytosis PT (10.0-12.5) sec INR (<1.2) APTT (22.0-30.0) sec Sodium (137-145) mmol/L Potassium (3.5-5.1) mmol/L Chloride (98-107) mmol/L Carbon Dioxide (22-30) mmol/L Anion Gap mmol/L BUN (9-20) mg/dL Creatinine (0.66-1.25) mg/dL Est GFR (CKD-EPI)AfAm (>60 ml/min/1.73 sqM) Est GFR (CKD-EPI)NonAf (>60 ml/min/1.73 sqM) Glucose (74-99) mg/dL Calcium (8.4-10.2) mg/dL Magnesium (1.6-2.3) mg/dL Total Bilirubin (0.2-1.3) mg/dL AST (17-59) U/L ALT (4-49) U/L Alkaline Phosphatase (38-126) U/L Troponin I <0.012 (0.000-0.034) ng/mL Total Protein (6.3-8.2) g/dL Albumin (3.5-5.0) g/dL Disposition Clinical Impression: Hypertension Disposition: HOME SELF-CARE Condition: Fair Instructions (If sedation given, give patient instructions): Hypertension (ED) Is patient prescribed a controlled substance at d/c from ED?: No Referrals: None,Stated [Primary Care Provider] - 1-2 days [facility] [[facility] - 1-2 days Time of Disposition: 14:06
[2024-06-28] MEDS: LACTATED RINGERS 1,000 ML BAG IV STA (13:22)
--- NOTE | 2024-06-28 13:34 | XR ---
EXAMINATION TYPE: XR chest 2V DATE OF EXAM: 06/28/2024 CLINICAL HISTORY: Chest pain TECHNIQUE: Frontal and lateral views of the chest are obtained. COMPARISON: Prior chest x-ray March 26, 2024 FINDINGS: There is no focal air space opacity, pleural effusion, or pneumothorax seen. The cardiac silhouette size is stable and within normal limits. Overlying EKG leads are seen. The osseous struct ures are intact. IMPRESSION: No acute process. No significant change from prior. [facility], , 06/28/2024 1:31 PM
[2024-06-28 13:36] LABS: ALT 14 U/L (4-49); AST 24 U/L (17-59); African American GFR (CKD) >90 (>60 ml/min/1.73 sqM); Albumin 3.9 g/dL (3.5-5.0); Alkaline Phosphatase 57 U/L (38-126); Anion Gap 9 mmol/L; Blood Urea Nitrogen 8 mg/dL (9-20); Calcium 9.3 mg/dL (8.4-10.2); Carbon Dioxide 27 mmol/L (22-30); Chloride 105 mmol/L (98-107); Glucose 80 mg/dL (74-99); Magnesium 2.2 mg/dL (1.6-2.3); Non-African American GFR(CKD) >90 (>60 ml/min/1.73 sqM); Potassium 3.6 mmol/L (3.5-5.1); Sodium 141 mmol/L (137-145); Total Bilirubin 0.9 mg/dL (0.2-1.3)
[2024-06-28 13:37] LABS: Basophils # (A) 0.1 k/uL (0-0.2); Basophils % (A) 1 %; Eosinophils % (A) 0 %; HCT 49.2 % (39.0-53.0); HGB 15.8 gm/dL (13.0-17.5); Lymphocytes # (A) 1.9 k/uL (1.0-4.8); Lymphocytes % (A) 19 %; MCHC 32.1 g/dL (31.0-37.0); MCV 109.3 fL (80.0-100.0); Macrocytosis Marked; Monocytes # (A) 0.8 k/uL (0-1.0); Monocytes % (A) 8 %; Neutrophils # (A) 7.1 k/uL (1.3-7.7); Neutrophils % (A) 70 %; Platelet Count 221 k/uL (150-450); RDW 13.8 % (11.5-15.5); WBC 10.1 k/uL (3.8-10.6)
[2024-06-28 13:38] LABS: INR 0.9 (<1.2); Partial Thromboplastin Time 22.1 sec (22.0-30.0); Prothrombin Time 10.3 sec (10.0-12.5)
== END 2024-06-28 18:01 | disposition home or self-care (01) ==
LOC: EC 12:43
DX: I10 Essential (primary) hypertension (principal); F17.200 Nicotine dependence, unspecified, uncomplicated; Z88.0 Allergy status to penicillin; Z91.030 Bee allergy status; Z88.5 Allergy status to narcotic agent; Z79.899 Other long term (current) drug therapy
CPT/HCPCS: 36415; 71046; 80053; 83735; 84484; 85025; 85610; 85730; 93005; 96374; 99285

== ENCOUNTER 2024-09-19 22:07 | Emergency (ER) | payer OTHER ==
[2024-09-19] MEDS: ASPIRIN 81 MG PO STA (22:36)
[2024-09-19] MEDS: KETOROLAC 15 MG/ML 1 ML VIAL IVP STA (22:37)
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
[2024-09-19 22:53] LABS: Basophils # (A) 0.1 k/uL (0-0.2); Basophils % (A) 1 %; Eosinophils # (A) 0.2 k/uL (0-0.7); Eosinophils % (A) 2 %; HCT 42.9 % (39.0-53.0); HGB 14.4 gm/dL (13.0-17.5); Lymphocytes # (A) 3.7 k/uL (1.0-4.8); Lymphocytes % (A) 44 %; MCH 33.5 pg (25.0-35.0); MCHC 33.5 g/dL (31.0-37.0); MCV 100.1 fL (80.0-100.0); Monocytes # (A) 0.6 k/uL (0-1.0); Monocytes % (A) 7 %; Neutrophils # (A) 3.7 k/uL (1.3-7.7); Neutrophils % (A) 43 %; Platelet Count 243 k/uL (150-450); RBC 4.29 m/uL (4.30-5.90); RDW 13.1 % (11.5-15.5); WBC 8.6 k/uL (3.8-10.6)
[2024-09-19 23:04] LABS: INR 0.9 (<1.2); Partial Thromboplastin Time 23.4 sec (22.0-30.0); Prothrombin Time 10.3 sec (10.0-12.5)
[2024-09-19 23:20] LABS: ALT 15 U/L (4-49); AST 28 U/L (17-59); African American GFR (CKD) >90 (>60 ml/min/1.73 sqM); Albumin 4.2 g/dL (3.5-5.0); Alkaline Phosphatase 56 U/L (38-126); Anion Gap 13 mmol/L; Blood Urea Nitrogen 12 mg/dL (9-20); Calcium 9.3 mg/dL (8.4-10.2); Carbon Dioxide 20 mmol/L (22-30); Chloride 98 mmol/L (98-107); Glucose 102 mg/dL (74-99); Magnesium 1.7 mg/dL (1.6-2.3); Non-African American GFR(CKD) >90 (>60 ml/min/1.73 sqM); Potassium 3.6 mmol/L (3.5-5.1); Sodium 131 mmol/L (137-145); Total Bilirubin 0.4 mg/dL (0.2-1.3); Total Protein 6.7 g/dL (6.3-8.2)
[2024-09-19 23:31] LABS: Influenza A Not Detected (Not Detectd); Influenza B Not Detected (Not Detectd); RSV Not Detected (Not Detectd)
[2024-09-20 00:09] VITALS: TEMP 97.5
--- NOTE | 2024-09-20 00:09 | XR ---
EXAM: XR Chest, 2 Views CLINICAL HISTORY: ITS.REASON XR Reason: Chest Pain TECHNIQUE: Frontal and lateral views of the chest. COMPARISON: Chest radiograph on 06/28/2024 FINDINGS: Hardware: None. Lungs/pleura: Normal. No focal consolidation. No pleural effusion or pneumothorax. Heart/mediastinum: Normal. No cardiomegaly. Soft tissues: Unremarkable. Bones: No acute fracture. Upper abdomen: Normal. IMPRESSION: No acute disease identified.
[2024-09-20] MEDS: SODIUM CHLORIDE 0.9% 1,000 ML IV ONE (00:48)
[2024-09-20] MEDS: methylPREDNISolone SOD SUCCI 125 MG/2 ML VIAL IV STA (00:48)
[2024-09-20] MEDS: ACETAMINOPHEN TAB 500 MG TAB PO STA (00:49)
[2024-09-20] MEDS: KETOROLAC 15 MG/ML 1 ML VIAL IVP STA (00:51)
[2024-09-20 00:56] VITALS: RESP 18
[2024-09-20] MEDS: IPRATROPIUM-ALBUTEROL 3 ML NEB INHALATION STA (01:04)
[2024-09-20] MEDS: AZITHROMYCIN 500 MG TAB PO STA (03:18)
[2024-09-20 03:20] VITALS: BP 103/65; PULSE 65
== END 2024-09-20 03:20 | disposition home or self-care (01) ==
LOC: EC 22:07
DX: J44.9 Chronic obstructive pulmonary disease, unspecified (principal); R07.89 Other chest pain; J40 Bronchitis, not specified as acute or chronic; I25.10 Atherosclerotic heart disease of native coronary artery without angina pectoris; F17.200 Nicotine dependence, unspecified, uncomplicated; Z88.0 Allergy status to penicillin; Z88.5 Allergy status to narcotic agent; Z91.030 Bee allergy status
CPT/HCPCS: 36415 ×2; 94640; 93005; 80053; 83735; 84484 ×2; 85025; 85610; 85730; 87636; 71046; 99285; 96374; 96375; 96376; 96361; J1885 ×2; J2919

== ENCOUNTER → 2024-12-05 | Outpatient (CLI) | payer OTHER ==
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
== END | disposition home or self-care (01) ==
LOC: RADNMMAIN 11:30
PROVIDERS: ATTEND Family Medicine
DX: R29.898 Other symptoms and signs involving the musculoskeletal system (principal); J44.9 Chronic obstructive pulmonary disease, unspecified; I10 Essential (primary) hypertension
CPT/HCPCS: 93017

== ENCOUNTER 2024-12-27 00:57 | Emergency (ER) | payer OTHER ==
[2024-12-27 01:01] VITALS: RESP 18
[2024-12-27] MEDS: NITROGLYCERIN SL TABS 0.4 MG TAB SUBLINGUAL STA ×2 (01:48→02:12)
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
[2024-12-27 02:32] VITALS: BP 124/89; PULSE 65; TEMP 98.9
== END 2024-12-27 02:32 | disposition home or self-care (01) ==
LOC: EC 00:57
DX: F10.129 Alcohol abuse with intoxication, unspecified (principal); I25.118 Atherosclerotic heart disease of native coronary artery with other forms of angina pectoris; F17.200 Nicotine dependence, unspecified, uncomplicated; Z88.0 Allergy status to penicillin; Z88.5 Allergy status to narcotic agent; Z91.030 Bee allergy status; Y90.9 Presence of alcohol in blood, level not specified
CPT/HCPCS: 93005; 99284